=== PATIENT | female | born 1950 | race Caucasian/White ===

== ENCOUNTER 2017-07-02 12:21 | Emergency (ER) | payer OTHER ==
[2017-07-02] MEDS ORDERED: Sodium Chloride 0.9% 2.5 ML Syringe FLUSH PRN (12:42)
[2017-07-02] MEDS ORDERED: Sodium Chloride 0.9% 10 ML Syringe FLUSH PRN (12:42)
--- NOTE | 2017-07-02 12:48 | EDM.PDOC ---
ED HPI GENERAL MEDICAL PROBLEM - General Chief Complaint: Abdominal Pain Stated Complaint: ABDOMINAL PAIN Time Seen by Provider: 07/02/17 12:43 Source of Information: Reports: Patient History Limitations: Reports: No Limitations - History of Present Illness INITIAL COMMENTS - FREE TEXT/NARRATIVE: HISTORY AND PHYSICAL: []66-year-old female presenting with pain with to her chest with coughing Pain to her abdomen History of Present Illness: []Pain started after she had a thyroid scan on Tuesday and had to lay flat Review of Systems: As per history of present illness and below otherwise all systems reviewed and negative. Past medical history: As per history of present illness and as reviewed below otherwise noncontributory. Surgical history: As per history of present illness and as reviewed below otherwise noncontributory. Social history: No reported history of drug or alcohol abuse. Family history: As per history of present illness and as reviewed below otherwise noncontributory. Physical exam: Alert oriented female answering questions appropriately in full sentences she has to cough during the sentence shortness of breath HEENT: Atraumatic, normocehpalic, pupils reactive, negative for conjunctival pallor or scleral icterus, mucous membranes moist, throat clear, neck supple, nontender, trachea midline. Lungs: Crackles to auscultation, breath sounds equal bilaterally, chest non tender. Heart: S1S2, regular, negative for clicks, rubs, or JVD. Abdomen: Soft, nondistended, nontender. Negative for masses or hepatossplenmegaly. Negative for costovertebral tenderness. Pelvis: Stable nontender. Genitourinary: Deferred. Rectal: Deferred Extremities: Atraumatic, negative for cords or calf pain. Neurovascular unremarkable. Neuro: Awake, alert, oriented. Cranial nerves II through XII unremarkable. Cerebellum unremarkable. Motor and sensory unremarkable throughout. Exam nonfocal. Discussed with the patient that she has a urinary tract infection Patient also has complained of her sinuses draining not exquisitely tender on examination Diagnostics: []CBC CMP EKG troponin blood cultures Therapeutics: [DuoNeb] Impression: []UTI Smoker's cough Chronic Plan: []Home Place this patient on Bactrim DS 1 twice a day 7 days Reduce smoking Follow up with your primary care provider next week Return to the emergency department as needed Definitive disposition and diagnosis as appropriate pending reevaluation and review of above. Onset: Gradual Duration: Day(s): (4) Location: Reports: Chest, Abdomen, Back Quality: Reports: Stabbing Severity: Moderate upper abd and mid sternal Pain Score (Numeric/FACES): 8 - Related Data Allergies Allergy/AdvReac Type Severity Reaction Status Date / Time No Known Allergies Allergy Verified 07/02/17 12:33 Home Meds: Home Meds Fenofibrate Nanocrystallized [Tricor] 145 mg PO DAILY 10/03/14 [History] Lisinopril/Hydrochlorothiazide [Lisinopril-Hctz 10-12.5 mg Tab] 0.5 tab PO DAILY 10/03/14 [History] Nitroglycerin [Nitrostat] 0.4 mg SL Q5M PRN 10/03/14 [History] Ticagrelor [Brilinta] 90 mg PO BID 10/03/14 [History] atorvaSTATin [Lipitor] 20 mg PO BEDTIME 10/03/14 [History] metFORMIN HCl [Glucophage] 1,000 mg PO BIDMEALS 11/12/15 [History] Aspirin 81 mg PO DAILY 02/16/16 [History] Carvedilol 3.125 mg PO BID 02/16/16 [History] Fluticasone/Salmeterol [Advair Diskus 250-50] 1 puff INH BID #1 inhaler [Rx] Albuterol/Ipratropium [Combivent Respimat] 1 puff IH QID 07/02/17 [History] Sulfamethoxazole/Trimethoprim [Bactrim Ds Tablet] 1 each PO BID #14 tablet 07/02 [Rx] Past Medical History - Past Health History Medical/Surgical History: Denies Medical/Surgical History HEENT History: Reports: None Cardiovascular History: Reports: CAD, High Cholesterol, Hypertension, [place] Other Cardiovascular History: 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 Psychiatric History: Reports: None Endocrine/Metabolic History: Reports: Diabetes, Type II - Infectious Disease History Infectious Disease History: Reports: Chicken Pox, Measles, Mumps - Past Surgical History Cardiovascular Surgical History: Reports: Carotid Stents Social & Family History - Family History Family Medical History: Noncontributory - Tobacco Use Smoking Status *Q: Current Every Day Smoker Years of Tobacco use: 35 Packs/Tins Daily: 1 Used Tobacco, but Quit: No Month/Year Tobacco Last Used: 07/2014 Second Hand Smoke Exposure: Yes - Caffeine Use Caffeine Use: Reports: Coffee - Recreational Drug Use Recreational Drug Use: No - Living Situation & Occupation Living situation: Reports: ED ROS GENERAL - Review of Systems Review Of Systems: ROS reveals no pertinent complaints other than HPI. ED EXAM, GENERAL - Physical Exam Exam: See Below (see dictation) EKG INTERPRETATION EKG Date: 07/02/17 Rhythm: NSR Rate (Beats/Min): 97 Course - Vital Signs Last Recorded V/S: Last Vital Signs Temp 35.9 C 07/02/17 12:25 Pulse 103 H 07/02/17 12:53 Resp 14 07/02/17 12:53 BP 129/95 H 07/02/17 12:53 Pulse Ox 95 07/02/17 12:53 - Orders/Labs/Meds Orders: Active Orders 24 hr Category Date Time Status EKG Documentation Completion [RC] STAT Care 07/02/17 12:42 Active RT Aerosol Therapy [RC] ASDIRECTED Care 07/02/17 12:55 Active Chest 2V [CR] Stat Exams 07/02/17 12:43 Taken CULTURE BLOOD [BC] Stat Lab 07/02/17 12:56 Received CULTURE BLOOD [BC] Stat Lab 07/02/17 13:06 Received CULTURE URINE [RM] Stat Lab 07/02/17 12:58 Ordered UA W/MICROSCOPIC [URIN] Stat Lab 07/02/17 12:58 Ordered Sodium Chloride 0.9% [Saline Flush] Med 07/02/17 12:42 Active 10 ml FLUSH ASDIRECTED PRN Sodium Chloride 0.9% [Saline Flush] Med 07/02/17 12:42 Active 2.5 ml FLUSH ASDIRECTED PRN Blood Culture x2 Reflex Set [OM.PC] Stat Oth 07/02/17 12:42 Ordered Saline Lock Insert [OM.PC] Stat Oth 07/02/17 12:42 Ordered Medication Orders Sodium Chloride (Saline Flush) 10 ml FLUSH ASDIRECTED PRN PRN Reason: Keep Vein Open Sodium Chloride (Saline Flush) 2.5 ml FLUSH ASDIRECTED PRN PRN Reason: Keep Vein Open Labs: Laboratory Tests 07/02/17 07/02/17 07/02/17 Range/Units 12:56 12:56 12:58 WBC 9.01 (4.0-11.0) K/uL RBC 4.79 (4.30-5.90) M/uL Hgb 14.3 (12.0-16.0) g/dL Hct 43.5 (36.0-46.0) % MCV 90.8 (80.0-98.0) fL MCH 29.9 (27.0-32.0) pg MCHC 32.9 (31.0-37.0) g/dL RDW Std Deviation 45.7 (28.0-62.0) fl RDW Coeff of Brianna 14 (11.0-15.0) % Plt Count 278 (150-400) K/uL MPV 9.70 (7.40-12.00) fL Neut % (Auto) 71.9 (48.0-80.0) % Lymph % (Auto) 17.6 (16.0-40.0) % [place] % (Auto) 7.2 (0.0-15.0) % Eos % (Auto) 2.7 (0.0-7.0) % Baso % (Auto) 0.6 (0.0-1.5) % Neut # (Auto) 6.5 H (1.4-5.7) K/uL Lymph # (Auto) 1.6 (0.6-2.4) K/uL [place] # (Auto) 0.7 (0.0-0.8) K/uL Eos # (Auto) 0.2 (0.0-0.7) K/uL Baso # (Auto) 0.1 (0.0-0.1) K/uL Nucleated RBC % 0.0 /100WBC Nucleated RBCs # 0 K/uL Sodium 139 (136-145) mmol/L Potassium 3.9 (3.5-5.1) mmol/L Chloride 103 (98-107) mmol/L Carbon Dioxide 26.3 (21.0-32.0) mmol/L BUN 21 H (7.0-18.0) mg/dL Creatinine 1.7 H (0.6-1.0) mg/dL Est Cr Clr Drug Dosing 33.72 mL/min Estimated GFR (MDRD) 30.3 ml/min Glucose 128 H (74-106) mg/dL Calcium 10.5 H (8.5-10.1) mg/dL Total Bilirubin 0.4 (0.2-1.0) mg/dL AST 10 L (15-37) IU/L ALT 13 L (14-63) IU/L Alkaline Phosphatase 53 (46-116) U/L Troponin I < 0.050 (0.000-0.056) ng/mL Total Protein 7.5 (6.4-8.2) g/dL Albumin 3.5 (3.4-5.0) g/dL Globulin 4.0 H (2.0-3.5) g/dL Albumin/Globulin Ratio 0.9 L (1.3-2.8) Urine Color YELLOW Urine Appearance CLEAR Urine pH 6.5 (5.0-8.0) Ur Specific [place] 1.015 (1.001-1.035) Urine Protein NEGATIVE (NEGATIVE) mg/dL Urine Glucose (UA) NEGATIVE (NEGATIVE) mg/dL Urine Ketones NEGATIVE (NEGATIVE) mg/dL Urine Occult Blood NEGATIVE (NEGATIVE) Urine Nitrite NEGATIVE (NEGATIVE) Urine Bilirubin NEGATIVE (NEGATIVE) Urine Urobilinogen 0.2 (<2.0) EU/dL Ur Leukocyte Esterase SMALL (NEGATIVE) Urine RBC 0-1 (0-2/HPF) Urine WBC 0-2 (0-5/HPF) Ur Epithelial Cells FEW (NONE-FEW) Urine Bacteria 1+ H (NEGATIVE) Meds: Medications Generic Name Dose Route Start Last Admin Trade Name Freq PRN Reason Stop Dose Admin Sodium Chloride 10 ml 07/02/17 12:42 Saline Flush FLUSH ASDIRECTED PRN Keep Vein Open Sodium Chloride 2.5 ml 07/02/17 12:42 Saline Flush FLUSH ASDIRECTED PRN Keep Vein Open Discontinued Medications Generic Name Dose Route Start Last Admin Trade Name Freq PRN Reason Stop Dose Admin Albuterol/Ipratropium 3 ml 07/02/17 12:55 07/02/17 13:02 Duoneb 3.0-0.5 Mg/3 Ml NEB 07/02/17 12:56 3 ml ONETIME ONE Administration Departure - Departure Time of Disposition: 14:18 Disposition: Home, Self-Care 01 Condition: Good Clinical Impression: UTI (urinary tract infection) Qualifiers: Urinary tract infection type: acute cystitis Hematuria presence: without hematuria Qualified Code(s): N30.00 - Acute cystitis without hematuria - Discharge Information Prescriptions: Sulfamethoxazole/Trimethoprim [Bactrim Ds Tablet] 1 each PO BID #14 tablet Referrals: PCP,Unknown [Primary Care Provider] - Forms: ED Department Discharge Additional Instructions: The following information is given to patients seen in the emergency department who are being discharged to home. This information is to outline your options for follow-up care. We provide all patients seen in our emergency department with a follow-up referral. The need for follow-up, as well as the timing and circumstances, are variable depending upon the specifics of your emergency department visit. If you don't have a primary care physician on staff, we will provide you with a referral. We always advise you to contact your personal physician following an emergency department visit to inform them of the circumstance of the visit and for follow-up with them and/or the need for any referrals to a consulting specialist. The emergency department will also refer you to a specialist when appropriate. This referral assures that you have the opportunity for followup care with a specialist. All of these measure are taken in an effort to provide you with optimal care, which includes your followup. Under all circumstances we always encourage you to contact your private physician who remains a resource for coordinating your care. When calling for followup care, please make the office aware that this follow-up is from your recent emergency room visit. If for any reason you are refused follow-up, please contact the [facility] emergency department at and asked to speak to the emergency department charge nurse. You have a urinary tract infection Bactrim DS 1 twice a day 7 days Follow-up with your primary care provider next week Return to the emergency department as needed and discussed - My Orders Last 24 Hours: My Active Orders 07/02/17 12:42 EKG Documentation Completion [RC] STAT Sodium Chloride 0.9% [Saline Flush] 10 ml FLUSH ASDIRECTED PRN Sodium Chloride 0.9% [Saline Flush] 2.5 ml FLUSH ASDIRECTED PRN Blood Culture x2 Reflex Set [OM.PC] Stat Saline Lock Insert [OM.PC] Stat 07/02/17 12:43 Chest 2V [CR] Stat 07/02/17 12:55 RT Aerosol Therapy [RC] ASDIRECTED 07/02/17 12:56 CULTURE BLOOD [BC] Stat 07/02/17 12:58 CULTURE URINE [RM] Stat UA W/MICROSCOPIC [URIN] Stat 07/02/17 13:06 CULTURE BLOOD [BC] Stat - Assessment/Plan Last 24 Hours: My Active Orders 07/02/17 12:42 EKG Documentation Completion [RC] STAT Sodium Chloride 0.9% [Saline Flush] 10 ml FLUSH ASDIRECTED PRN Sodium Chloride 0.9% [Saline Flush] 2.5 ml FLUSH ASDIRECTED PRN Blood Culture x2 Reflex Set [OM.PC] Stat Saline Lock Insert [OM.PC] Stat 07/02/17 12:43 Chest 2V [CR] Stat 07/02/17 12:55 RT Aerosol Therapy [RC] ASDIRECTED 07/02/17 12:56 CULTURE BLOOD [BC] Stat 07/02/17 12:58 CULTURE URINE [RM] Stat UA W/MICROSCOPIC [URIN] Stat 07/02/17 13:06 CULTURE BLOOD [BC] Stat
[2017-07-02] MEDS ORDERED: Albuterol/Ipratropium 3.0-0.5 MG/3 ML Neb Soln NEB ONE (12:55)
[2017-07-02 13:45] LABS: CHLORIDE,CL 103 mmol/L (98-107); SODIUM,NA 139 mmol/L (136-145)
[2017-07-02 14:38] VITALS: BP 125/76
--- NOTE | 2017-07-04 13:53 | CR ---
EXAM DATE: 07/02/17 PATIENT'S AGE: 66 Patient: LOUIS LEARY Facility: [place], [place] Site . Site : 1950 Study: XRay Chest [id number]/28/2018 1:40:42 PM Ordering Physician: Doctor Elliott Final Report: INDICATION: Midsternal chest pain, feels worse when she coughs, patient states cardiac history TECHNIQUE: Chest radiograph 2 views COMPARISON: None FINDINGS: Mediastinum: The heart silhouette is normal in size and morphology. The mediastinum is normal in appearance. A small hiatal hernia noted. Mild coronary artery calcifications seen. Lungs: Both lungs are unremarkable in appearance. No sign of pleural effusion seen. No pneumothorax is identified. Bones and soft tissue: Unremarkable for age. IMPRESSION: 1. Mild coronary artery calcifications seen. Dictated by: Jerry Alfred MD @ 07/02/2017 14:05:21 (Electronic Signature) Report Signed by Proxy. JAZMIN
== END 2017-07-02 14:38 | disposition home or self-care (01) ==
LOC: MW.ED 12:21
DX: N30.00 Acute cystitis without hematuria (principal); J41.0 Simple chronic bronchitis; I25.10 Atherosclerotic heart disease of native coronary artery without angina pectoris; E78.00 Pure hypercholesterolemia, unspecified; I10 Essential (primary) hypertension; E11.9 Type 2 diabetes mellitus without complications; I25.2 Old myocardial infarction; F17.210 Nicotine dependence, cigarettes, uncomplicated; Z79.899 Other long term (current) drug therapy; Z79.84 Long term (current) use of oral hypoglycemic drugs; Z79.82 Long term (current) use of aspirin
CPT/HCPCS: 36415; 71046; 71046-26; 80053; 81001; 84484; 85025; 87040; 87086; 93005; 94640; 99283; 99284-25

== ENCOUNTER 2018-06-04 12:37 | Inpatient (IN) | payer OTHER ==
[2018-06-04] MEDS ORDERED: methylPREDNISolone Sodium Succinate 125 MG/2 ML SDV IVPUSH ONE (12:44)
[2018-06-04] MEDS ORDERED: Albuterol/Ipratropium 3.0-0.5 MG/3 ML Neb Soln NEB ONE (12:44)
[2018-06-04] MEDS ORDERED: Sodium Chloride 0.9% 1,000 ML IV SCH (12:45)
--- NOTE | 2018-06-04 12:46 | EDM.PDOC ---
ED HPI GENERAL MEDICAL PROBLEM - General Stated Complaint: SHORTNESS OF BREATH Time Seen by Provider: 06/04/18 12:45 Source of Information: Reports: Patient - History of Present Illness INITIAL COMMENTS - FREE TEXT/NARRATIVE: HISTORY AND PHYSICAL: History of present illness: [Patient with COPD and diabetes presents with shortness of breath She is hypoxic at rest on room air 85% no distress speaking in full sentences, post DuoNeb and Solu-Medrol she requires 4 L to maintain sats at 90% breathing is nonlabored she does have harsh cough denies fever nausea vomiting chills sweats denies chest pain headache dizziness or palpitation no bowel or urine symptoms ] Review of systems: As per history of present illness and below otherwise all systems reviewed and negative. Past medical history: As per history of present illness and as reviewed below otherwise noncontributory. Surgical history: As per history of present illness and as reviewed below otherwise noncontributory. Social history: No reported history of drug or alcohol abuse. Family history: As per history of present illness and as reviewed below otherwise noncontributory. Physical exam: HEENT: Atraumatic, normocephalic, pupils reactive, negative for conjunctival pallor or scleral icterus, mucous membranes moist, throat clear, neck supple, nontender, trachea midline. Lungs: Clear to auscultation, breath sounds equal bilaterally, chest nontender. Heart: S1S2, regular, negative for clicks, rubs, or JVD. Abdomen: Soft, nondistended, nontender. Negative for masses or hepatosplenomegaly. Negative for costovertebral tenderness. Pelvis: Stable nontender. Genitourinary: Deferred. Rectal: Deferred. Extremities: Atraumatic, negative for cords or calf pain. Neurovascular unremarkable. Neuro: Awake, alert, oriented. Cranial nerves II through XII unremarkable. Cerebellum unremarkable. Motor and sensory unremarkable throughout. Exam nonfocal. Diagnostics: [CBC CMP UA troponin lipase BN peptide EKG Chest 1 view ] Therapeutics: Normal saline DuoNeb Solu-Medrol 125 mg IV Rocephin 1 g IV Azithromycin 500 mg IV ] Impression: Hypoxia Infiltrate on chest x-ray [Short of breath chronic history Baseline ] Definitive disposition and diagnosis as appropriate pending reevaluation and review of above. - Related Data Allergies Allergy/AdvReac Type Severity Reaction Status Date / Time No Known Allergies Allergy Verified 07/02/17 12:33 Home Meds: Home Meds Fenofibrate Nanocrystallized [Tricor] 145 mg PO DAILY 10/03/14 [History] Lisinopril/Hydrochlorothiazide [Lisinopril-Hctz 10-12.5 mg Tab] 0.5 tab PO DAILY 10/03/14 [History] Nitroglycerin [Nitrostat] 0.4 mg SL Q5M PRN 10/03/14 [History] Ticagrelor [Brilinta] 90 mg PO BID 10/03/14 [History] atorvaSTATin [Lipitor] 20 mg PO BEDTIME 10/03/14 [History] metFORMIN HCl [Glucophage] 1,000 mg PO BIDMEALS 11/12/15 [History] Aspirin 81 mg PO DAILY 02/16/16 [History] Carvedilol 3.125 mg PO BID 02/16/16 [History] Fluticasone/Salmeterol [Advair Diskus 250-50] 1 puff INH BID #1 inhaler [Rx] Albuterol/Ipratropium [Combivent Respimat] 1 puff IH QID 07/02/17 [History] Sulfamethoxazole/Trimethoprim [Bactrim Ds Tablet] 1 each PO BID #14 tablet 07/02 [Rx] Past Medical History - Past Health History Medical/Surgical History: Denies Medical/Surgical History HEENT History: Reports: None Cardiovascular History: Reports: CAD, High Cholesterol, Hypertension, [place] Other 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 Psychiatric History: Reports: None Endocrine/Metabolic History: Reports: Diabetes, Type II - Infectious Disease History Infectious Disease History: Reports: Chicken Pox, Measles, Mumps - Past Surgical History Cardiovascular Surgical History: Reports: Carotid Stents Social & Family History - Family History Family Medical History: Noncontributory - Caffeine Use Caffeine Use: Reports: Coffee - Living Situation & Occupation Living situation: Reports: ED ROS GENERAL - Review of Systems Review Of Systems: See Below ED EXAM, GENERAL - Physical Exam Exam: See Below Course - Vital Signs Last Recorded V/S: Last Vital Signs Temp 97.8 F 06/04/18 12:53 Pulse 115 H 06/04/18 12:53 Resp 24 H 06/04/18 12:53 BP 150/93 H 06/04/18 12:53 Pulse Ox 91 L 06/04/18 13:26 - Orders/Labs/Meds Orders: Active Orders 24 hr Category Date Time Status EKG Documentation Completion [RC] STAT Care 06/04/18 12:44 Active RT Aerosol Therapy [RC] ASDIRECTED Care 06/04/18 12:44 Active Chest 1V Frontal [CR] Stat Exams 06/04/18 12:44 Taken UA RFX ANGELLA AND CULT IF INDIC [URIN] Stat Lab 06/04/18 12:44 Ordered Sodium Chloride 0.9% [Normal Saline] 1,000 ml Med 06/04/18 12:45 Active IV STAT Medication Orders Sodium Chloride (Normal Saline) 1,000 mls @ 125 mls/hr IV STAT SHEN Last Admin: 06/04/18 12:55 Dose: 125 mls/hr Labs: Laboratory Tests 06/04/18 06/04/18 06/04/18 Range/Units 12:54 12:54 12:54 WBC 13.56 H (4.0-11.0) K/uL RBC 4.77 (4.30-5.90) M/uL Hgb 14.3 (12.0-16.0) g/dL Hct 44.1 (36.0-46.0) % MCV 92.5 (80.0-98.0) fL MCH 30.0 (27.0-32.0) pg MCHC 32.4 (31.0-37.0) g/dL RDW Std Deviation 46.4 (28.0-62.0) fl RDW Coeff of Brianna 14 (11.0-15.0) % Plt Count 210 (150-400) K/uL MPV 9.40 (7.40-12.00) fL Neut % (Auto) 79.3 (48.0-80.0) % Lymph % (Auto) 11.9 L (16.0-40.0) % [place] % (Auto) 8.4 (0.0-15.0) % Eos % (Auto) 0.1 (0.0-7.0) % Baso % (Auto) 0.3 (0.0-1.5) % Neut # (Auto) 10.8 H (1.4-5.7) K/uL Lymph # (Auto) 1.6 (0.6-2.4) K/uL [place] # (Auto) 1.1 H (0.0-0.8) K/uL Eos # (Auto) 0.0 (0.0-0.7) K/uL Baso # (Auto) 0.0 (0.0-0.1) K/uL Nucleated RBC % 0.0 /100WBC Nucleated RBCs # 0 K/uL Sodium 137 (136-145) mmol/L Potassium 4.2 (3.5-5.1) mmol/L Chloride 100 (98-107) mmol/L Carbon Dioxide 27.2 (21.0-32.0) mmol/L BUN 28 H (7.0-18.0) mg/dL Creatinine 1.7 H (0.6-1.0) mg/dL Est Cr Clr Drug Dosing 33.28 mL/min Estimated GFR (MDRD) 30.2 ml/min Glucose 153 H (74-106) mg/dL Calcium 10.9 H (8.5-10.1) mg/dL Total Bilirubin 0.8 (0.2-1.0) mg/dL AST 8 L (15-37) IU/L ALT 16 (14-63) IU/L Alkaline Phosphatase 61 (46-116) U/L Troponin I < 0.050 (0.000-0.056) ng/mL B-Natriuretic Peptide 36 (<100) PG/ML Total Protein 8.1 (6.4-8.2) g/dL Albumin 3.4 (3.4-5.0) g/dL Globulin 4.7 H (2.6-4.0) g/dL Albumin/Globulin Ratio 0.7 L (0.9-1.6) Lipase 171 (73-393) U/L Meds: Medications Generic Name Dose Route Start Last Admin Trade Name Freq PRN Reason Stop Dose Admin Sodium Chloride 1,000 mls @ 125 mls/hr 06/04/18 12:45 06/04/18 12:55 Normal Saline IV 125 mls/hr STAT SHEN Administration Discontinued Medications Generic Name Dose Route Start Last Admin Trade Name Freq PRN Reason Stop Dose Admin Albuterol/Ipratropium 3 ml 06/04/18 12:44 06/04/18 13:06 Duoneb 3.0-0.5 Mg/3 Ml NEB 06/04/18 12:45 3 ml ONETIME ONE Administration Methylprednisolone Sodium Succinate 125 mg 06/04/18 12:44 06/04/18 12:55 Solu-Medrol IVPUSH 06/04/18 12:45 125 mg ONETIME ONE Administration Departure - Departure Time of Disposition: 13:54 Disposition: Admitted As Inpatient 68 Condition: Poor Clinical Impression: Hypoxia - Discharge Information Referrals: PCP,Unknown [Primary Care Provider] - - My Orders Last 24 Hours: My Active Orders 06/04/18 12:44 EKG Documentation Completion [RC] STAT RT Aerosol Therapy [RC] ASDIRECTED Chest 1V Frontal [CR] Stat UA RFX ANGELLA AND CULT IF INDIC [URIN] Stat 06/04/18 12:45 Sodium Chloride 0.9% [Normal Saline] 1,000 ml IV STAT - Assessment/Plan Last 24 Hours: My Active Orders 06/04/18 12:44 EKG Documentation Completion [RC] STAT RT Aerosol Therapy [RC] ASDIRECTED Chest 1V Frontal [CR] Stat UA RFX ANGELLA AND CULT IF INDIC [URIN] Stat 06/04/18 12:45 Sodium Chloride 0.9% [Normal Saline] 1,000 ml IV STAT
[2018-06-04 13:21] LABS: CHLORIDE,CL 100 mmol/L (98-107); SODIUM,NA 137 mmol/L (136-145)
--- NOTE | 2018-06-04 14:09 | CR ---
History : Shortness of breath Comparison : None. FINDINGS: Single portable AP view of the chest. The lungs are clear. No evidence for pneumonia. Heart size and pulmonary vascularity are within normal limits. Costophrenic angles sharp. Dictated by Felisha Castillo MD @ Jun 04 2018 2:06PM Signed by Dr. Felisha Castillo @ Jun 04 2018 2:06PM
[2018-06-04] MEDS ORDERED: Albuterol/Ipratropium 3.0-0.5 MG/3 ML Neb Soln NEB PRN (15:16)
[2018-06-04] MEDS ORDERED: Ondansetron 4 MG Tab.DIS PO PRN (15:16)
[2018-06-04] MEDS ORDERED: Acetaminophen 325 MG Tab PO PRN (15:16)
[2018-06-04] MEDS ORDERED: oxyCODONE 5 MG Tab PO PRN (15:16)
[2018-06-04] MEDS ORDERED: Temazepam 15 MG Cap PO PRN (15:16)
--- NOTE | 2018-06-04 15:23 | PCM.HP ---
H&P History of Present Illness - General Date of Service: 06/04/18 Admit Problem/Dx: Admission Diagnosis/Problem Admission Diagnosis/Problem acute on chronic respiratory failure, COPD exacerbation Source of Information: Patient History Limitations: Reports: No Limitations - History of Present Illness Initial Comments - Free Text/Narative: The patient is a 67-year-old lady who had presented to the emergency department primarily with a complaint of shortness of breath. The patient says that she has been sick with upper respiratory type infection for the past 2 days. Finally , shortness of breath got so bad that she needed to seek emergency care. The patient says that she has a cough that has been productive of sputum. She has denied any fever or chills but has felt cold. The patient still continues to smoke. In the emergency department the patient had a pulse oximetry reading of 85% on room air. She is on oxygen currently and does not use oxygen at home. She has had no specific aggravating or relieving factors although she gets more short of breath when ambulating. Onset of Symptoms: Reports: Gradual Duration of Symptoms: Reports: Day(s):, Getting Worse Location: Reports: Chest Quality: Reports: Dull Severity: Moderate Improves with: Reports: Rest Worsens with: Reports: Breathing, Movement Context: Reports: Sick Contact Associated Symptoms: Reports: cough w sputum, Shortness of Breath - Related Data Allergies/Adverse Reactions: Allergies Allergy/AdvReac Type Severity Reaction Status Date / Time No Known Allergies Allergy Verified 07/02/17 12:33 Home Medications: Home Meds Lisinopril/Hydrochlorothiazide [Lisinopril-Hctz 10-12.5 mg Tab] 1 tab PO DAILY 10/03/14 [History] Nitroglycerin [Nitrostat] 0.4 mg SL Q5M PRN 10/03/14 [History] metFORMIN HCl [Glucophage] 1,000 mg PO BIDMEALS 11/12/15 [History] Aspirin 81 mg PO DAILY 02/16/16 [History] Fluticasone/Salmeterol [Advair Diskus 250-50] 1 puff INH BID #1 inhaler [Rx] Albuterol/Ipratropium [Combivent Respimat] 1 puff IH QID 07/02/17 [History] Rosuvastatin Calcium [Crestor] 40 mg PO DAILY 06/04/18 [History] Past Medical History - Past Health History Medical/Surgical History: Denies Medical/Surgical History HEENT History: Reports: None Cardiovascular History: Reports: CAD, High Cholesterol, Hypertension, [place] Other Cardiovascular History: three stents on September Respiratory History: Reports: COPD Gastrointestinal History: Reports: None Genitourinary History: Reports: None [employer] History: Reports: Musculoskeletal History: Reports: Fracture Neurological History: Reports: None Psychiatric History: Reports: None Endocrine/Metabolic History: Reports: Diabetes, Type II Hematologic History: Reports: None Immunologic History: Reports: None - Infectious Disease History Infectious Disease History: Reports: Chicken Pox, Measles, Mumps - Past Surgical History Cardiovascular Surgical History: Reports: Carotid Stents Social & Family History - Family History Family Medical History: Noncontributory - Tobacco Use Smoking Status *Q: Current Every Day Smoker Years of Tobacco use: 40 Packs/Tins Daily: 1 - Caffeine Use Caffeine Use: Reports: Coffee - Recreational Drug Use Recreational Drug Use: No - Living Situation & Occupation Living situation: Reports: H&P Review of Systems - Review of Systems: Review Of Systems: See Below General: Reports: Malaise, Weakness, Decreased Appetite HEENT: Reports: No Symptoms Pulmonary: Reports: Shortness of Breath, Wheezing, Pleuritic Chest Pain, Cough, Sputum Cardiovascular: Reports: No Symptoms Gastrointestinal: Reports: No Symptoms Genitourinary: Reports: No Symptoms Musculoskeletal: Reports: No Symptoms Skin: Reports: No Symptoms Psychiatric: Reports: No Symptoms Neurological: Reports: No Symptoms Hematologic/Lymphatic: Reports: No Symptoms Immunologic: Reports: No Symptoms Exam - Exam Exam: See Below - Vital Signs Vital Signs: Last Vital Signs Temp 36.6 C 06/04/18 12:53 Pulse 115 H 06/04/18 12:53 Resp 24 H 06/04/18 12:53 BP 150/93 H 06/04/18 12:53 Pulse Ox 91 L 06/04/18 14:05 Weight: 99.79 kg - Exam Quality Assessment: Supplemental Oxygen General: Alert (Appears most older than stated age), Oriented, Cooperative, Mild Distress HEENT: Conjunctiva Clear, EACs Clear, EOMI, Hearing Intact, PERRLA. No: Mucosa Moist & [place] (Dry, poor oral hygiene, missing teeth) Neck: Supple, Trachea Midline, +2 Carotid Pulse wo Bruit Lungs: Decreased Breath Sounds, Rhonchi, Wheezing Cardiovascular: Regular Rate, Regular Rhythm GI/Abdominal Exam: Normal Bowel Sounds, Soft, Non-Tender, No Distention, Other ( Obese) (Female) Exam: Deferred Rectal (Female) Exam: Deferred Back Exam: Normal Inspection Extremities: Normal Inspection, No Pedal Edema Skin: Warm, Dry, Intact, Other (Hirsutism) Neurological: Cranial Nerves Intact Psychiatric: Alert, Normal Mood. No: Normal Affect (Flat affect) - Patient Data Lab Results Last 24 hrs: Laboratory Results - last 24 hr 06/04/18 06/04/18 06/04/18 Range/Units 12:54 12:54 12:54 WBC 13.56 H (4.0-11.0) K/uL RBC 4.77 (4.30-5.90) M/uL Hgb 14.3 (12.0-16.0) g/dL Hct 44.1 (36.0-46.0) % MCV 92.5 (80.0-98.0) fL MCH 30.0 (27.0-32.0) pg MCHC 32.4 (31.0-37.0) g/dL RDW Std Deviation 46.4 (28.0-62.0) fl RDW Coeff of Brianna 14 (11.0-15.0) % Plt Count 210 (150-400) K/uL MPV 9.40 (7.40-12.00) fL Neut % (Auto) 79.3 (48.0-80.0) % Lymph % (Auto) 11.9 L (16.0-40.0) % [place] % (Auto) 8.4 (0.0-15.0) % Eos % (Auto) 0.1 (0.0-7.0) % Baso % (Auto) 0.3 (0.0-1.5) % Neut # (Auto) 10.8 H (1.4-5.7) K/uL Lymph # (Auto) 1.6 (0.6-2.4) K/uL [place] # (Auto) 1.1 H (0.0-0.8) K/uL Eos # (Auto) 0.0 (0.0-0.7) K/uL Baso # (Auto) 0.0 (0.0-0.1) K/uL Nucleated RBC % 0.0 /100WBC Nucleated RBCs # 0 K/uL Sodium 137 (136-145) mmol/L Potassium 4.2 (3.5-5.1) mmol/L Chloride 100 (98-107) mmol/L Carbon Dioxide 27.2 (21.0-32.0) mmol/L BUN 28 H (7.0-18.0) mg/dL Creatinine 1.7 H (0.6-1.0) mg/dL Est Cr Clr Drug Dosing 33.28 mL/min Estimated GFR (MDRD) 30.2 ml/min Glucose 153 H (74-106) mg/dL Calcium 10.9 H (8.5-10.1) mg/dL Total Bilirubin 0.8 (0.2-1.0) mg/dL AST 8 L (15-37) IU/L ALT 16 (14-63) IU/L Alkaline Phosphatase 61 (46-116) U/L Troponin I < 0.050 (0.000-0.056) ng/mL B-Natriuretic Peptide 36 (<100) PG/ML Total Protein 8.1 (6.4-8.2) g/dL Albumin 3.4 (3.4-5.0) g/dL Globulin 4.7 H (2.6-4.0) g/dL Albumin/Globulin Ratio 0.7 L (0.9-1.6) Lipase 171 (73-393) U/L Result Diagrams: 06/04/18 12:54 06/04/18 12:54 - Problem List (1) Acute respiratory failure with hypoxia and hypercapnia SNOMED Code(s): 812056054 ICD Code: J96.01 - ACUTE RESPIRATORY FAILURE WITH HYPOXIA; J96.02 - ACUTE RESPIRATORY FAILURE WITH HYPERCAPNIA Status: Acute Priority: High Current Visit: Yes (2) COPD exacerbation SNOMED Code(s): 222166815, 366273019 ICD Code: J44.1 - CHRONIC OBSTRUCTIVE PULMONARY DISEASE W (ACUTE) EXACERBATION Status: Acute Priority: High Current Visit: Yes (3) Diabetes mellitus type II, non insulin dependent SNOMED Code(s): 69596239 ICD Code: E11.9 - TYPE 2 DIABETES MELLITUS WITHOUT COMPLICATIONS Status: Chronic Priority: High Current Visit: Yes (4) CAD (coronary artery disease) SNOMED Code(s): 09381946 ICD Code: I25.10 - ATHSCL HEART DISEASE OF [place] CORONARY ARTERY W/O ANG PCTRS Status: Chronic Priority: High Current Visit: Yes Qualifiers: Coronary Disease-Associated Artery/Lesion type: [place] artery [place] vs. transplanted heart: [place] heart Associated angina: without angina Qualified Code(s): I25.10 - Atherosclerotic heart disease of [place] coronary artery without angina pectoris (5) HTN (hypertension) SNOMED Code(s): 31611150 ICD Code: I10 - ESSENTIAL (PRIMARY) HYPERTENSION Status: Chronic Priority : High Current Visit: Yes Qualifiers: Hypertension type: essential hypertension Qualified Code(s): I10 - Essential (primary) hypertension (6) Chronic kidney disease, stage 3 (moderate) SNOMED Code(s): 758268856 ICD Code: N18.3 - CHRONIC KIDNEY DISEASE, STAGE 3 (MODERATE) Status: Chronic Priority: High Current Visit: Yes (7) Tobacco abuse SNOMED Code(s): 740704795 ICD Code: Z72.0 - TOBACCO USE Status: Chronic Priority: High Current Visit: Yes Problem List Initiated/Reviewed/Updated: Yes Orders Last 24hrs: Active Orders 24 hr Category Date Time Status Admission Status [Patient Status] [ADT] Stat ADT 06/04/18 13:55 Active Blood Glucose Check, Bedside [RC] WITHMEALSANDBED Care 06/04/18 15:16 Ordered Cardiac Monitoring [RC] CONTINUOUS Care 06/04/18 15:17 Ordered Diabetes Education [RC] Click to Edit Care 06/04/18 15:17 Ordered EKG Documentation Completion [RC] STAT Care 06/04/18 12:44 Active Oxygen Therapy [RC] PRN Care 06/04/18 15:16 Ordered RT Aerosol Therapy [RC] ASDIRECTED Care 06/04/18 12:44 Active RT Aerosol Therapy [RC] ASDIRECTED Care 06/04/18 15:19 Ordered Up With Assistance [RC] ASDIRECTED Care 06/04/18 15:16 Ordered VTE/DVT Education [RC] PER UNIT ROUTINE Care 06/04/18 15:16 Ordered Vital Signs [RC] Q4H Care 06/04/18 15:16 Ordered Consistent Carbohydrate Diet [DIET] Diet 06/04/18 Dinner Ordered CBC WITH AUTO DIFF [HEME] AM Lab 06/05/18 05:11 Ordered COMPREHENSIVE METABOLIC PN,CMP [CHEM] AM Lab 06/05/18 05:11 Ordered UA RFX ANGELLA AND CULT IF INDIC [URIN] Stat Lab 06/04/18 12:44 Ordered Acetaminophen [Tylenol] Med 06/04/18 15:16 Ordered 650 mg PO Q4H PRN Albuterol/Ipratropium [DuoNeb 3.0-0.5 MG/3 ML] Med 06/04/18 15:16 Ordered 3 ml NEB Q4HRRT PRN Azithromycin [Zithromax] 500 mg Med 06/04/18 15:30 Ordered Sodium Chloride 0.9% [Normal Saline] 250 ml IV Q24H Enoxaparin [Lovenox] Med 06/04/18 15:30 Ordered 30 mg SUBCUT Q24H Insulin Aspart [NovoLOG] Med 06/04/18 21:00 Ordered See Protocol SUBCUT ACBREAKFASTANDBED Lisinopril/Hydrochlorothiazide [Lisinopril-HCTZ 10-12.5 Med 06/05/18 09:00 Ordered MG] 1 tab PO DAILY Ondansetron [Zofran ODT] Med 06/04/18 15:16 Ordered 4 mg PO Q6H PRN Rosuvastatin Calcium [Crestor] Med 06/05/18 09:00 Ordered 40 mg PO DAILY Sodium Chloride 0.9% [Normal Saline] 1,000 ml Med 06/04/18 15:30 Ordered IV ASDIRECTED Sodium Chloride 0.9% [Normal Saline] 1,000 ml Med 06/04/18 12:45 Active IV STAT Temazepam [Restoril] Med 06/04/18 15:16 Ordered 15 mg PO BEDTIME PRN metFORMIN HCl [Glucophage] Med 06/04/18 17:00 Ordered 1,000 mg PO BIDMEALS methylPREDNISolone Sod Succ [Solu-MEDROL] Med 06/04/18 15:30 Ordered 120 mg IV Q8H oxyCODONE Med 06/04/18 15:16 Ordered 5 mg PO Q4H PRN Glucose Management Sub Q Reflex [OM.PC] Click To Edit Oth 06/04/18 15:16 Ordered Resuscitation Status Routine Resus Stat 06/04/18 15:16 Ordered Medication Orders Acetaminophen (Tylenol) 650 mg PO Q4H PRN PRN Reason: Pain (Mild 1-3)/fever Albuterol/Ipratropium (Duoneb 3.0-0.5 Mg/3 Ml) 3 ml NEB Q4HRRT PRN PRN Reason: Shortness Of Breath/wheezing Enoxaparin Sodium (Lovenox) 30 mg SUBCUT Q24H SHEN Sodium Chloride (Normal Saline) 1,000 mls @ 125 mls/hr IV STAT SHEN Last Admin: 06/04/18 12:55 Dose: 125 mls/hr Azithromycin 500 mg/ Sodium (Chloride) 250 mls @ 250 mls/hr IV Q24H SHEN Sodium Chloride (Normal Saline) 1,000 mls @ 75 mls/hr IV ASDIRECTED SHEN Insulin Aspart (Novolog) 0 unit SUBCUT ACBREAKFASTANDBED SHEN; Protocol Methylprednisolone Sodium Succinate (Solu-Medrol) 120 mg IV Q8H SHEN Ondansetron HCl (Zofran Odt) 4 mg PO Q6H PRN PRN Reason: nausea, able to take PO Oxycodone HCl (Oxycodone) 5 mg PO Q4H PRN PRN Reason: Pain (moderate 4-6) Temazepam (Restoril) 15 mg PO BEDTIME PRN PRN Reason: Sleep Assessment/Plan Comment:: The patient is a 67-year-old lady who has been admitted secondary to acute on chronic hypoxic respiratory failure. This is likely secondary to the patient's underlying COPD. Radiology over read of chest x-ray did not show any signs of pneumonia. The patient will be kept on oxygen therapy to keep her saturations around 92%. The patient will also be started on azithromycin 500 mg IV daily and Solu-Medrol 120 mg every 8 hours. She also has been recommended to have breathing treatments with duo nebs every 4 hours as needed per respiratory therapy. She'll be kept on diabetic diet as tolerated for now. The patient will have Accu-Cheks before meals and at bedtime and her blood sugars will be controlled with high-dose sliding scale insulin. This will be done at high dose because of the patient having worsening hyperglycemia secondary to steroid use. The patient also has what appears to be chronic kidney disease stage III and laboratory testings will be reordered for the morning to help track her BUN/ creatinine. The patient also has been strongly counseled with regards to smoking cessation and she has refused a nicotine patch. The patient should be appropriate for discharge in 1-2 days. She has been encouraged to ambulate. The patient will be anticoagulated with low-dose Lovenox secondary to her chronic kidney disease.
[2018-06-04] MEDS ORDERED: Enoxaparin 30 MG/0.3 ML Syringe SUBCUT SCH (15:30)
[2018-06-04] MEDS ORDERED: Azithromycin 500 MG in Sodium Chloride 0.9% 250 ML IV SCH ×2 (15:30→16:17)
[2018-06-04] MEDS: Sodium Chloride 0.9% 1,000 ML IV SCH (16:13)
[2018-06-04] MEDS: methylPREDNISolone Sodium Succinate 125 MG/2 ML SDV IV SCH ×2 (16:14→23:29)
[2018-06-04] MEDS: Heparin Sodium 5,000 Units/ML Vial SUBCUT SCH ×2 (16:35→23:29)
[2018-06-04] MEDS ORDERED: metFORMIN 500 MG Tab PO SCH (17:00)
[2018-06-04] MEDS ORDERED: Insulin Aspart 100 Units/ML 3 ML Pen SUBCUT SCH ×2 (17:00→21:00)
[2018-06-04] MEDS: Insulin Aspart 100 Units/ML 3 ML Pen SUBCUT SCH (21:19)
[2018-06-05] MEDS: Sodium Chloride 0.9% 1,000 ML IV SCH ×3 (02:26→23:54)
[2018-06-05] MEDS: methylPREDNISolone Sodium Succinate 125 MG/2 ML SDV IV SCH ×3 (06:31→21:30)
[2018-06-05] MEDS: Insulin Aspart 100 Units/ML 3 ML Pen SUBCUT SCH ×4 (08:15→21:29)
[2018-06-05] MEDS: Heparin Sodium 5,000 Units/ML Vial SUBCUT SCH ×3 (08:20→23:58)
[2018-06-05] MEDS: Rosuvastatin 10 MG Tab PO SCH (08:27)
[2018-06-05] MEDS ORDERED: Sodium Chloride 0.9% 1,000 ML IV ONE (08:30)
--- NOTE | 2018-06-05 08:33 | PCM.PN ---
<Mary Birmingham M - Last Filed: 06/05/18 09:03> - General Info Date of Service: 06/05/18 Admission Dx/Problem (Free Text): Admission Diagnosis/Problem Admission Diagnosis/Problem Acute on chronic respiratory failure, COPD exacerbation Subjective Update: Reports breathing is improved today, continued intermittent wheezing. Dry cough. No chest pain. No dyspnea on exertion. Reports some urgency, frequency with urination. No flank pain or lower abdominal pain. Functional Status: Reports: Pain Controlled, Tolerating Diet, Ambulating, Urinating - Review of Systems General: Reports: No Symptoms. Denies: Fever, Weakness, Fatigue HEENT: Reports: No Symptoms. Denies: Headaches, Sore Throat, Visual Changes Pulmonary: Reports: Cough. Denies: Shortness of Breath, Sputum, Wheezing Cardiovascular: Reports: No Symptoms. Denies: Chest Pain, Dyspnea on Exertion, Lightheadedness Gastrointestinal: Reports: No Symptoms. Denies: Abdominal Pain, Nausea, Vomiting Genitourinary: Reports: No Symptoms. Denies: Dysuria, Frequency, Burning Musculoskeletal: Reports: No Symptoms Skin: Reports: No Symptoms Neurological: Reports: No Symptoms Psychiatric: Reports: No Symptoms - Patient Data Vitals - Most Recent: Last Vital Signs Temp 97.1 F 06/05/18 08:00 Pulse 80 06/05/18 08:00 Resp 20 06/05/18 08:00 BP 100/51 L 06/05/18 08:00 Pulse Ox 92 L 06/05/18 08:00 Weight - Most Recent: 99.79 kg I&O - Last 24 Hours: Intake & Output 06/04/18 06/05/18 06/05/18 22:59 06:59 14:59 Intake Total 392 1455 Output Total 0 300 Balance 392 1155 Lab Results Last 24 Hours: Laboratory Results - last 24 hr 06/04/18 06/04/18 06/04/18 Range/Units 12:54 12:54 12:54 WBC 13.56 H (4.0-11.0) K/uL RBC 4.77 (4.30-5.90) M/uL Hgb 14.3 (12.0-16.0) g/dL Hct 44.1 (36.0-46.0) % MCV 92.5 (80.0-98.0) fL MCH 30.0 (27.0-32.0) pg MCHC 32.4 (31.0-37.0) g/dL RDW Std Deviation 46.4 (28.0-62.0) fl RDW Coeff of Brianna 14 (11.0-15.0) % Plt Count 210 (150-400) K/uL MPV 9.40 (7.40-12.00) fL Neut % (Auto) 79.3 (48.0-80.0) % Lymph % (Auto) 11.9 L (16.0-40.0) % [place] % (Auto) 8.4 (0.0-15.0) % Eos % (Auto) 0.1 (0.0-7.0) % Baso % (Auto) 0.3 (0.0-1.5) % Neut # (Auto) 10.8 H (1.4-5.7) K/uL Lymph # (Auto) 1.6 (0.6-2.4) K/uL [place] # (Auto) 1.1 H (0.0-0.8) K/uL Eos # (Auto) 0.0 (0.0-0.7) K/uL Baso # (Auto) 0.0 (0.0-0.1) K/uL Nucleated RBC % 0.0 /100WBC Nucleated RBCs # 0 K/uL Sodium 137 (136-145) mmol/L Potassium 4.2 (3.5-5.1) mmol/L Chloride 100 (98-107) mmol/L Carbon Dioxide 27.2 (21.0-32.0) mmol/L BUN 28 H (7.0-18.0) mg/dL Creatinine 1.7 H (0.6-1.0) mg/dL Est Cr Clr Drug Dosing 33.28 mL/min Estimated GFR (MDRD) 30.2 ml/min Glucose 153 H (74-106) mg/dL POC Glucose (60-110) mg/dL Calcium 10.9 H (8.5-10.1) mg/dL Total Bilirubin 0.8 (0.2-1.0) mg/dL AST 8 L (15-37) IU/L ALT 16 (14-63) IU/L Alkaline Phosphatase 61 (46-116) U/L Troponin I < 0.050 (0.000-0.056) ng/mL B-Natriuretic Peptide 36 (<100) PG/ML Total Protein 8.1 (6.4-8.2) g/dL Albumin 3.4 (3.4-5.0) g/dL Globulin 4.7 H (2.6-4.0) g/dL Albumin/Globulin Ratio 0.7 L (0.9-1.6) Lipase 171 (73-393) U/L Urine Color Urine Appearance Urine pH (5.0-8.0) Ur Specific [place] (1.001-1.035) Urine Protein (NEGATIVE) mg/dL Urine Glucose (UA) (NEGATIVE) mg/dL Urine Ketones (NEGATIVE) mg/dL Urine Occult Blood (NEGATIVE) Urine Nitrite (NEGATIVE) Urine Bilirubin (NEGATIVE) Urine Ictotest Urine Urobilinogen (<2.0) EU/dL Ur Leukocyte Esterase (NEGATIVE) Urine RBC (0-2/HPF) Urine WBC (0-5/HPF) Ur Epithelial Cells (NONE-FEW) Amorphous Sediment (NEGATIVE) Urine Bacteria (NEGATIVE) Urine Mucus (NONE-MOD) 06/04/18 06/04/18 06/04/18 Range/Units 15:34 17:25 19:30 WBC (4.0-11.0) K/uL RBC (4.30-5.90) M/uL Hgb (12.0-16.0) g/dL Hct (36.0-46.0) % MCV (80.0-98.0) fL MCH (27.0-32.0) pg MCHC (31.0-37.0) g/dL RDW Std Deviation (28.0-62.0) fl RDW Coeff of [place] (11.0-15.0) % Plt Count (150-400) K/uL MPV (7.40-12.00) fL Neut % (Auto) (48.0-80.0) % Lymph % (Auto) (16.0-40.0) % [place] % (Auto) (0.0-15.0) % Eos % (Auto) (0.0-7.0) % Baso % (Auto) (0.0-1.5) % Neut # (Auto) (1.4-5.7) K/uL Lymph # (Auto) (0.6-2.4) K/uL [place] # (Auto) (0.0-0.8) K/uL Eos # (Auto) (0.0-0.7) K/uL Baso # (Auto) (0.0-0.1) K/uL Nucleated RBC % /100WBC Nucleated RBCs # K/uL Sodium (136-145) mmol/L Potassium (3.5-5.1) mmol/L Chloride (98-107) mmol/L Carbon Dioxide (21.0-32.0) mmol/L BUN (7.0-18.0) mg/dL Creatinine (0.6-1.0) mg/dL Est Cr Clr Drug Dosing mL/min Estimated GFR (MDRD) ml/min Glucose (74-106) mg/dL POC Glucose 164 H 328 H 253 H (60-110) mg/dL Calcium (8.5-10.1) mg/dL Total Bilirubin (0.2-1.0) mg/dL AST (15-37) IU/L ALT (14-63) IU/L Alkaline Phosphatase (46-116) U/L Troponin I (0.000-0.056) ng/mL B-Natriuretic Peptide (<100) PG/ML Total Protein (6.4-8.2) g/dL Albumin (3.4-5.0) g/dL Globulin (2.6-4.0) g/dL Albumin/Globulin Ratio (0.9-1.6) Lipase (73-393) U/L Urine Color Urine Appearance Urine pH (5.0-8.0) Ur Specific [place] (1.001-1.035) Urine Protein (NEGATIVE) mg/dL Urine Glucose (UA) (NEGATIVE) mg/dL Urine Ketones (NEGATIVE) mg/dL Urine Occult Blood (NEGATIVE) Urine Nitrite (NEGATIVE) Urine Bilirubin (NEGATIVE) Urine Ictotest Urine Urobilinogen (<2.0) EU/dL Ur Leukocyte Esterase (NEGATIVE) Urine RBC (0-2/HPF) Urine WBC (0-5/HPF) Ur Epithelial Cells (NONE-FEW) Amorphous Sediment (NEGATIVE) Urine Bacteria (NEGATIVE) Urine Mucus (NONE-MOD) 06/04/18 06/05/18 06/05/18 Range/Units 21:18 05:30 06:01 WBC 11.35 H (4.0-11.0) K/uL RBC 4.46 (4.30-5.90) M/uL Hgb 13.2 (12.0-16.0) g/dL Hct 42.1 (36.0-46.0) % MCV 94.4 (80.0-98.0) fL MCH 29.6 (27.0-32.0) pg MCHC 31.4 (31.0-37.0) g/dL RDW Std Deviation 47.8 (28.0-62.0) fl RDW Coeff of Brianna 14 (11.0-15.0) % Plt Count 218 (150-400) K/uL MPV 10.00 (7.40-12.00) fL Neut % (Auto) 91.6 H (48.0-80.0) % Lymph % (Auto) 7.3 L (16.0-40.0) % [place] % (Auto) 1.1 (0.0-15.0) % Eos % (Auto) 0.0 (0.0-7.0) % Baso % (Auto) 0.0 (0.0-1.5) % Neut # (Auto) 10.4 H (1.4-5.7) K/uL Lymph # (Auto) 0.8 (0.6-2.4) K/uL [place] # (Auto) 0.1 (0.0-0.8) K/uL Eos # (Auto) 0.0 (0.0-0.7) K/uL Baso # (Auto) 0.0 (0.0-0.1) K/uL Nucleated RBC % 0.0 /100WBC Nucleated RBCs # 0 K/uL Sodium (136-145) mmol/L Potassium (3.5-5.1) mmol/L Chloride (98-107) mmol/L Carbon Dioxide (21.0-32.0) mmol/L BUN (7.0-18.0) mg/dL Creatinine (0.6-1.0) mg/dL Est Cr Clr Drug Dosing mL/min Estimated GFR (MDRD) ml/min Glucose (74-106) mg/dL POC Glucose 265 H (60-110) mg/dL Calcium (8.5-10.1) mg/dL Total Bilirubin (0.2-1.0) mg/dL AST (15-37) IU/L ALT (14-63) IU/L Alkaline Phosphatase (46-116) U/L Troponin I (0.000-0.056) ng/mL B-Natriuretic Peptide (<100) PG/ML Total Protein (6.4-8.2) g/dL Albumin (3.4-5.0) g/dL Globulin (2.6-4.0) g/dL Albumin/Globulin Ratio (0.9-1.6) Lipase (73-393) U/L Urine Color YELLOW Urine Appearance CLEAR Urine pH 5.0 (5.0-8.0) Ur Specific [place] >= 1.030 (1.001-1.035) Urine Protein NEGATIVE (NEGATIVE) mg/dL Urine Glucose (UA) NEGATIVE (NEGATIVE) mg/dL Urine Ketones TRACE H (NEGATIVE) mg/dL Urine Occult Blood NEGATIVE (NEGATIVE) Urine Nitrite NEGATIVE (NEGATIVE) Urine Bilirubin SMALL H (NEGATIVE) Urine Ictotest NEGATIVE Urine Urobilinogen 0.2 (<2.0) EU/dL Ur Leukocyte Esterase TRACE H (NEGATIVE) Urine RBC NONE SEEN (0-2/HPF) Urine WBC 0-2 (0-5/HPF) Ur Epithelial Cells MANY (NONE-FEW) Amorphous Sediment LIGHT (NEGATIVE) Urine Bacteria 2+ H (NEGATIVE) Urine Mucus MODERATE (NONE-MOD) 06/05/18 06/05/18 Range/Units 06:01 06:30 WBC (4.0-11.0) K/uL RBC (4.30-5.90) M/uL Hgb (12.0-16.0) g/dL Hct (36.0-46.0) % MCV (80.0-98.0) fL MCH (27.0-32.0) pg MCHC (31.0-37.0) g/dL RDW Std Deviation (28.0-62.0) fl RDW Coeff of [place]anna (11.0-15.0) % Plt Count (150-400) K/uL MPV (7.40-12.00) fL Neut % (Auto) (48.0-80.0) % Lymph % (Auto) (16.0-40.0) % [place] % (Auto) (0.0-15.0) % Eos % (Auto) (0.0-7.0) % Baso % (Auto) (0.0-1.5) % Neut # (Auto) (1.4-5.7) K/uL Lymph # (Auto) (0.6-2.4) K/uL [place] # (Auto) (0.0-0.8) K/uL Eos # (Auto) (0.0-0.7) K/uL Baso # (Auto) (0.0-0.1) K/uL Nucleated RBC % /100WBC Nucleated RBCs # K/uL Sodium 138 (136-145) mmol/L Potassium 4.8 (3.5-5.1) mmol/L Chloride 103 (98-107) mmol/L Carbon Dioxide 26.4 (21.0-32.0) mmol/L BUN 51 H (7.0-18.0) mg/dL Creatinine 2.4 H (0.6-1.0) mg/dL Est Cr Clr Drug Dosing 23.57 mL/min Estimated GFR (MDRD) 20.3 ml/min Glucose 239 H (74-106) mg/dL POC Glucose 233 H (60-110) mg/dL Calcium 10.5 H (8.5-10.1) mg/dL Total Bilirubin 0.3 (0.2-1.0) mg/dL AST 10 L (15-37) IU/L ALT 16 (14-63) IU/L Alkaline Phosphatase 55 (46-116) U/L Troponin I (0.000-0.056) ng/mL B-Natriuretic Peptide (<100) PG/ML Total Protein 7.3 (6.4-8.2) g/dL Albumin 2.9 L (3.4-5.0) g/dL Globulin 4.4 H (2.6-4.0) g/dL Albumin/Globulin Ratio 0.7 L (0.9-1.6) Lipase (73-393) U/L Urine Color Urine Appearance Urine pH (5.0-8.0) Ur Specific [place] (1.001-1.035) Urine Protein (NEGATIVE) mg/dL Urine Glucose (UA) (NEGATIVE) mg/dL Urine Ketones (NEGATIVE) mg/dL Urine Occult Blood (NEGATIVE) Urine Nitrite (NEGATIVE) Urine Bilirubin (NEGATIVE) Urine Ictotest Urine Urobilinogen (<2.0) EU/dL Ur Leukocyte Esterase (NEGATIVE) Urine RBC (0-2/HPF) Urine WBC (0-5/HPF) Ur Epithelial Cells (NONE-FEW) Amorphous Sediment (NEGATIVE) Urine Bacteria (NEGATIVE) Urine Mucus (NONE-MOD) Med Orders - Current: Current Medications Acetaminophen (Tylenol) 650 mg PO Q4H PRN PRN Reason: Pain (Mild 1-3)/fever Albuterol/Ipratropium (Duoneb 3.0-0.5 Mg/3 Ml) 3 ml NEB Q4HRRT PRN PRN Reason: Shortness Of Breath/wheezing Heparin Sodium (Porcine) (Heparin Sodium) 5,000 units SUBCUT Q8H [facility] Last Admin: 06/05/18 08:20 Dose: 5,000 units Azithromycin 500 mg/ Sodium (Chloride) 250 mls @ 250 mls/hr IV Q24H [facility] Last Admin: 06/04/18 16:40 Dose: 250 mls/hr Sodium Chloride (Normal Saline) 1,000 mls @ 500 mls/hr IV .Bolus ONE Stop: 06/05/18 10:29 Sodium Chloride (Normal Saline) 1,000 mls @ 125 mls/hr IV ASDIRECTED [facility] Insulin Aspart (Novolog) 0 unit SUBCUT QIDACANDBED [facility]; Protocol Last Admin: 06/05/18 08:15 Dose: 6 units Methylprednisolone Sodium Succinate (Solu-Medrol) 125 mg IV Q8H [facility] Ondansetron HCl (Zofran Odt) 4 mg PO Q6H PRN PRN Reason: nausea, able to take PO Oxycodone HCl (Oxycodone) 5 mg PO Q4H PRN PRN Reason: Pain (moderate 4-6) Brilinta (Ticagrelor () 90 Mg) 1 each PO BID [facility] Rosuvastatin Calcium (Crestor) 40 mg PO DAILY [facility] Last Admin: 06/05/18 08:27 Dose: 40 mg Fluticasone/Salmeterol (Advair Diskus 250-50) 1 puff INH BID [facility] Temazepam (Restoril) 15 mg PO BEDTIME PRN PRN Reason: Sleep Discontinued Medications Albuterol/Ipratropium (Duoneb 3.0-0.5 Mg/3 Ml) 3 ml NEB ONETIME ONE Stop: 06/04/18 12:45 Last Admin: 06/04/18 13:06 Dose: 3 ml Enoxaparin Sodium (Lovenox) 30 mg SUBCUT Q24H [facility] Last Admin: 06/04/18 17:14 Dose: Not Given Lisinopril/HCTZ (Lisinopril-Hctz 10-12.5 Mg) 1 tab PO DAILY [facility] Sodium Chloride (Normal Saline) 1,000 mls @ 125 mls/hr IV STAT [facility] Last Admin: 06/04/18 12:55 Dose: 125 mls/hr Azithromycin 500 mg/ Sodium (Chloride) 250 mls @ 250 mls/hr IV Q24H [facility] Last Admin: 06/04/18 16:40 Dose: Not Given Sodium Chloride (Normal Saline) 1,000 mls @ 75 mls/hr IV ASDIRECTED [facility] Last Admin: 06/05/18 02:26 Dose: 75 mls/hr Insulin Aspart (Novolog) 0 unit SUBCUT ACBREAKFASTANDBED [facility]; Protocol Insulin Aspart (Novolog) 0 unit SUBCUT TIDAC [facility]; Protocol Last Admin: 06/04/18 16:22 Dose: 3 units Metformin HCl (Glucophage) 1,000 mg PO BIDMEALS [facility] Last Admin: 06/04/18 16:14 Dose: 1,000 mg Methylprednisolone Sodium Succinate (Solu-Medrol) 125 mg IVPUSH ONETIME ONE Stop: 06/04/18 12:45 Last Admin: 06/04/18 12:55 Dose: 125 mg Methylprednisolone Sodium Succinate (Solu-Medrol) 120 mg IV Q8H [facility] Last Admin: 06/05/18 06:31 Dose: 120 mg - Exam General: Alert, Oriented, Cooperative, No Acute Distress Lungs: Decreased Breath Sounds (throughout), Wheezing (all lung de dios.) Cardiovascular: Regular Rate, Regular Rhythm, No Murmurs GI/Abdominal Exam: Normal Bowel Sounds, Soft, Non-Tender, No Organomegaly Back Exam: Normal Inspection, Full Range of Motion. No: CVA Tenderness (L), CVA Tenderness (R) Extremities: Normal Inspection, Normal Range of Motion, Non-Tender, No Pedal Edema Skin: Warm, Dry Neurological: No New Focal Deficit Psy/Mental Status: Alert, Normal Affect, Normal Mood - Problem List & Annotations (1) Acute respiratory failure with hypoxia and hypercapnia SNOMED Code(s): 364676529 Code(s): J96.01 - ACUTE RESPIRATORY FAILURE WITH HYPOXIA; J96.02 - ACUTE RESPIRATORY FAILURE WITH HYPERCAPNIA Status: Acute Priority: High Current Visit: Yes (2) COPD exacerbation SNOMED Code(s): 960097849, 814961399 Code(s): J44.1 - CHRONIC OBSTRUCTIVE PULMONARY DISEASE W (ACUTE) EXACERBATION Status: Acute Priority: High Current Visit: Yes (3) UTI (urinary tract infection) SNOMED Code(s): 81091394 Code(s): N39.0 - URINARY TRACT INFECTION, SITE NOT SPECIFIED Status: Acute Current Visit: No Qualifiers: Urinary tract infection type: acute cystitis Hematuria presence: without hematuria Qualified Code(s): N30.00 - Acute cystitis without hematuria (4) ALIDA (acute kidney injury) SNOMED Code(s): 87024637 Code(s): N17.9 - ACUTE KIDNEY FAILURE, UNSPECIFIED Status: Acute Current Visit: Yes (5) CAD (coronary artery disease) SNOMED Code(s): 52936005 Code(s): I25.10 - ATHSCL HEART DISEASE OF [place] CORONARY ARTERY W/O ANG PCTRS Status: Chronic Priority: High Current Visit: Yes Qualifiers: Coronary Disease-Associated Artery/Lesion type: [place] artery [place] vs. transplanted heart: [place] heart Associated angina: without angina Qualified Code(s): I25.10 - Atherosclerotic heart disease of [place] coronary artery without angina pectoris (6) Chronic kidney disease, stage 3 (moderate) SNOMED Code(s): 136165437 Code(s): N18.3 - CHRONIC KIDNEY DISEASE, STAGE 3 (MODERATE) Status: Chronic Priority: High Current Visit: Yes (7) Diabetes mellitus type II, non insulin dependent SNOMED Code(s): 33952840 Code(s): E11.9 - TYPE 2 DIABETES MELLITUS WITHOUT COMPLICATIONS Status: Chronic Priority: High Current Visit: Yes (8) HTN (hypertension) SNOMED Code(s): 67339707 Code(s): I10 - ESSENTIAL (PRIMARY) HYPERTENSION Status: Chronic Priority : High Current Visit: Yes Qualifiers: Hypertension type: essential hypertension Qualified Code(s): I10 - Essential (primary) hypertension (9) Tobacco abuse SNOMED Code(s): 090096551 Code(s): Z72.0 - TOBACCO USE Status: Chronic Priority: High Current Visit: Yes (10) Hx of myocardial infarction SNOMED Code(s): 393888234 Code(s): I25.2 - OLD MYOCARDIAL INFARCTION Status: Chronic Current Visit : No (11) Hypercalcemia SNOMED Code(s): 57678193 Code(s): E83.52 - HYPERCALCEMIA Status: Chronic Current Visit: No - Problem List Review Problem List Initiated/Reviewed/Updated: Yes - My Orders Last 24 Hours: My Active Orders 06/05/18 08:30 Sodium Chloride 0.9% [Normal Saline] 1,000 ml IV .Bolus 06/05/18 08:31 Sodium Chloride 0.9% [Normal Saline] 1,000 ml IV ASDIRECTED 06/05/18 08:32 Retroperitoneal Comp [US] Urgent 06/05/18 09:00 Fluticasone/Salmeterol [Advair Diskus 250-50] 1 puff INH BID Patient's Own Medication [Ptom] 1 each PO BID 06/05/18 14:30 methylPREDNISolone Sod Succ [Solu-MEDROL] 125 mg IV Q8H - Plan Plan:: This 67 year old female admitted with acute on chronic hypoxic respiratory failure and COPD exacerbation. 1. Acute on chronic hypoxic respiratory failure: Improving, continues to be on 3 L NC. Continue Duonebs. 2. COPD exacerbation: Improving, reports improved dyspnea. Continue Solu-mderol 125 mg Q8hr IV for now due to decreased LS and continued wheezing on exam. Encourage ambulation and IS use. Declines help with smoke cessation. Continue Azithromycin. 3. ALIDA on CKD: Has stage III renal disease. Hold nephrotoxic medications, including Metformin and Lisinopril/HCTZ. Noted to have hypotension this morning , 100/50s. Denies dizziness, may be dehydrated. Will administer 1 L Bolus and increase IVFs to 125 today and monitor renal function in am. Renal US ordered. Upon review of outpatient PCP visit on May 08, BUN 19 and Cr 1.4 4. UTI: Reports urgency and frequency, +2 bacteria in urine, LE +. Many epithelial cells, may be dirty sample. UC pending. 5. DM Type 2: Elevated BS, likely secondary to steroid administration. Continue SSI with Novolog. Last A1c 7.0. Hold Metformin due to ALIDA. DM educator consulted. 6. Hypercalcemia: Persistent. Again, upon review of PCP notes, she had NM study and noted to have parathyroid adenoma and hyperparathyroidism. Notes reports she has not seen specialist yet. Will monitor, but Ca is stable. 7. CAD: Hx NM with PCI to LAD. Continue statin and Brillinta 90 mg BID. VTE prophylaxis: Heparin Dispo: 1-2 days pending improvement. PCP, Lashanda Valdez NP and Dr Jacobs. <Martin Mcbride - Last Filed: 06/05/18 12:21> - General Info Admission Dx/Problem (Free Text): I have examined the patient independently of Mary Birmingham CNP. I have discussed the case with her. I have reviewed and agree with the plan of care as outlined by her. Please see orders. - Patient Data Vitals - Most Recent: Last Vital Signs Temp 36.0 C 06/05/18 11:45 Pulse 83 06/05/18 11:45 Resp 15 06/05/18 11:45 BP 105/56 L 06/05/18 11:45 Pulse Ox 91 L 06/05/18 11:45 I&O - Last 24 Hours: Intake & Output 06/04/18 06/05/18 06/05/18 22:59 06:59 14:59 Intake Total 392 1455 1050 Output Total 0 300 Balance 392 1155 1050 Lab Results Last 24 Hours: Laboratory Results - last 24 hr 06/04/18 06/04/18 06/04/18 Range/Units 12:54 12:54 12:54 WBC 13.56 H (4.0-11.0) K/uL RBC 4.77 (4.30-5.90) M/uL Hgb 14.3 (12.0-16.0) g/dL Hct 44.1 (36.0-46.0) % MCV 92.5 (80.0-98.0) fL MCH 30.0 (27.0-32.0) pg MCHC 32.4 (31.0-37.0) g/dL RDW Std Deviation 46.4 (28.0-62.0) fl RDW Coeff of [place] 14 (11.0-15.0) % Plt Count 210 (150-400) K/uL MPV 9.40 (7.40-12.00) fL Neut % (Auto) 79.3 (48.0-80.0) % Lymph % (Auto) 11.9 L (16.0-40.0) % [place] % (Auto) 8.4 (0.0-15.0) % Eos % (Auto) 0.1 (0.0-7.0) % Baso % (Auto) 0.3 (0.0-1.5) % Neut # (Auto) 10.8 H (1.4-5.7) K/uL Lymph # (Auto) 1.6 (0.6-2.4) K/uL [place] # (Auto) 1.1 H (0.0-0.8) K/uL Eos # (Auto) 0.0 (0.0-0.7) K/uL Baso # (Auto) 0.0 (0.0-0.1) K/uL Nucleated RBC % 0.0 /100WBC Nucleated RBCs # 0 K/uL Sodium 137 (136-145) mmol/L Potassium 4.2 (3.5-5.1) mmol/L Chloride 100 (98-107) mmol/L Carbon Dioxide 27.2 (21.0-32.0) mmol/L BUN 28 H (7.0-18.0) mg/dL Creatinine 1.7 H (0.6-1.0) mg/dL Est Cr Clr Drug Dosing 33.28 mL/min Estimated GFR (MDRD) 30.2 ml/min Glucose 153 H (74-106) mg/dL POC Glucose (60-110) mg/dL Calcium 10.9 H (8.5-10.1) mg/dL Total Bilirubin 0.8 (0.2-1.0) mg/dL AST 8 L (15-37) IU/L ALT 16 (14-63) IU/L Alkaline Phosphatase 61 (46-116) U/L Troponin I < 0.050 (0.000-0.056) ng/mL B-Natriuretic Peptide 36 (<100) PG/ML Total Protein 8.1 (6.4-8.2) g/dL Albumin 3.4 (3.4-5.0) g/dL Globulin 4.7 H (2.6-4.0) g/dL Albumin/Globulin Ratio 0.7 L (0.9-1.6) Lipase 171 (73-393) U/L Urine Color Urine Appearance Urine pH (5.0-8.0) Ur Specific [place] (1.001-1.035) Urine Protein (NEGATIVE) mg/dL Urine Glucose (UA) (NEGATIVE) mg/dL Urine Ketones (NEGATIVE) mg/dL Urine Occult Blood (NEGATIVE) Urine Nitrite (NEGATIVE) Urine Bilirubin (NEGATIVE) Urine Ictotest Urine Urobilinogen (<2.0) EU/dL Ur Leukocyte Esterase (NEGATIVE) Urine RBC (0-2/HPF) Urine WBC (0-5/HPF) Ur Epithelial Cells (NONE-FEW) Amorphous Sediment (NEGATIVE) Urine Bacteria (NEGATIVE) Urine Mucus (NONE-MOD) 06/04/18 06/04/18 06/04/18 Range/Units 15:34 17:25 19:30 WBC (4.0-11.0) K/uL RBC (4.30-5.90) M/uL Hgb (12.0-16.0) g/dL Hct (36.0-46.0) % MCV (80.0-98.0) fL MCH (27.0-32.0) pg MCHC (31.0-37.0) g/dL RDW Std Deviation (28.0-62.0) fl RDW Coeff of [place] (11.0-15.0) % Plt Count (150-400) K/uL MPV (7.40-12.00) fL Neut % (Auto) (48.0-80.0) % Lymph % (Auto) (16.0-40.0) % [place] % (Auto) (0.0-15.0) % Eos % (Auto) (0.0-7.0) % Baso % (Auto) (0.0-1.5) % Neut # (Auto) (1.4-5.7) K/uL Lymph # (Auto) (0.6-2.4) K/uL [place] # (Auto) (0.0-0.8) K/uL Eos # (Auto) (0.0-0.7) K/uL Baso # (Auto) (0.0-0.1) K/uL Nucleated RBC % /100WBC Nucleated RBCs # K/uL Sodium (136-145) mmol/L Potassium (3.5-5.1) mmol/L Chloride (98-107) mmol/L Carbon Dioxide (21.0-32.0) mmol/L BUN (7.0-18.0) mg/dL Creatinine (0.6-1.0) mg/dL Est Cr Clr Drug Dosing mL/min Estimated GFR (MDRD) ml/min Glucose (74-106) mg/dL POC Glucose 164 H 328 H 253 H (60-110) mg/dL Calcium (8.5-10.1) mg/dL Total Bilirubin (0.2-1.0) mg/dL AST (15-37) IU/L ALT (14-63) IU/L Alkaline Phosphatase (46-116) U/L Troponin I (0.000-0.056) ng/mL B-Natriuretic Peptide (<100) PG/ML Total Protein (6.4-8.2) g/dL Albumin (3.4-5.0) g/dL Globulin (2.6-4.0) g/dL Albumin/Globulin Ratio (0.9-1.6) Lipase (73-393) U/L Urine Color Urine Appearance Urine pH (5.0-8.0) Ur Specific [place] (1.001-1.035) Urine Protein (NEGATIVE) mg/dL Urine Glucose (UA) (NEGATIVE) mg/dL Urine Ketones (NEGATIVE) mg/dL Urine Occult Blood (NEGATIVE) Urine Nitrite (NEGATIVE) Urine Bilirubin (NEGATIVE) Urine Ictotest Urine Urobilinogen (<2.0) EU/dL Ur Leukocyte Esterase (NEGATIVE) Urine RBC (0-2/HPF) Urine WBC (0-5/HPF) Ur Epithelial Cells (NONE-FEW) Amorphous Sediment (NEGATIVE) Urine Bacteria (NEGATIVE) Urine Mucus (NONE-MOD) 06/04/18 06/05/18 06/05/18 Range/Units 21:18 05:30 06:01 WBC 11.35 H (4.0-11.0) K/uL RBC 4.46 (4.30-5.90) M/uL Hgb 13.2 (12.0-16.0) g/dL Hct 42.1 (36.0-46.0) % MCV 94.4 (80.0-98.0) fL MCH 29.6 (27.0-32.0) pg MCHC 31.4 (31.0-37.0) g/dL RDW Std Deviation 47.8 (28.0-62.0) fl RDW Coeff of Brianna 14 (11.0-15.0) % Plt Count 218 (150-400) K/uL MPV 10.00 (7.40-12.00) fL Neut % (Auto) 91.6 H (48.0-80.0) % Lymph % (Auto) 7.3 L (16.0-40.0) % [place] % (Auto) 1.1 (0.0-15.0) % Eos % (Auto) 0.0 (0.0-7.0) % Baso % (Auto) 0.0 (0.0-1.5) % Neut # (Auto) 10.4 H (1.4-5.7) K/uL Lymph # (Auto) 0.8 (0.6-2.4) K/uL [place] # (Auto) 0.1 (0.0-0.8) K/uL Eos # (Auto) 0.0 (0.0-0.7) K/uL Baso # (Auto) 0.0 (0.0-0.1) K/uL Nucleated RBC % 0.0 /100WBC Nucleated RBCs # 0 K/uL Sodium (136-145) mmol/L Potassium (3.5-5.1) mmol/L Chloride (98-107) mmol/L Carbon Dioxide (21.0-32.0) mmol/L BUN (7.0-18.0) mg/dL Creatinine (0.6-1.0) mg/dL Est Cr Clr Drug Dosing mL/min Estimated GFR (MDRD) ml/min Glucose (74-106) mg/dL POC Glucose 265 H (60-110) mg/dL Calcium (8.5-10.1) mg/dL Total Bilirubin (0.2-1.0) mg/dL AST (15-37) IU/L ALT (14-63) IU/L Alkaline Phosphatase (46-116) U/L Troponin I (0.000-0.056) ng/mL B-Natriuretic Peptide (<100) PG/ML Total Protein (6.4-8.2) g/dL Albumin (3.4-5.0) g/dL Globulin (2.6-4.0) g/dL Albumin/Globulin Ratio (0.9-1.6) Lipase (73-393) U/L Urine Color YELLOW Urine Appearance CLEAR Urine pH 5.0 (5.0-8.0) Ur Specific [place] >= 1.030 (1.001-1.035) Urine Protein NEGATIVE (NEGATIVE) mg/dL Urine Glucose (UA) NEGATIVE (NEGATIVE) mg/dL Urine Ketones TRACE H (NEGATIVE) mg/dL Urine Occult Blood NEGATIVE (NEGATIVE) Urine Nitrite NEGATIVE (NEGATIVE) Urine Bilirubin SMALL H (NEGATIVE) Urine Ictotest NEGATIVE Urine Urobilinogen 0.2 (<2.0) EU/dL Ur Leukocyte Esterase TRACE H (NEGATIVE) Urine RBC NONE SEEN (0-2/HPF) Urine WBC 0-2 (0-5/HPF) Ur Epithelial Cells MANY (NONE-FEW) Amorphous Sediment LIGHT (NEGATIVE) Urine Bacteria 2+ H (NEGATIVE) Urine Mucus MODERATE (NONE-MOD) 06/05/18 06/05/18 06/05/18 Range/Units 06:01 06:30 12:00 WBC (4.0-11.0) K/uL RBC (4.30-5.90) M/uL Hgb (12.0-16.0) g/dL Hct (36.0-46.0) % MCV (80.0-98.0) fL MCH (27.0-32.0) pg MCHC (31.0-37.0) g/dL RDW Std Deviation (28.0-62.0) fl RDW Coeff of Brianna (11.0-15.0) % Plt Count (150-400) K/uL MPV (7.40-12.00) fL Neut % (Auto) (48.0-80.0) % Lymph % (Auto) (16.0-40.0) % [place] % (Auto) (0.0-15.0) % Eos % (Auto) (0.0-7.0) % Baso % (Auto) (0.0-1.5) % Neut # (Auto) (1.4-5.7) K/uL Lymph # (Auto) (0.6-2.4) K/uL [place] # (Auto) (0.0-0.8) K/uL Eos # (Auto) (0.0-0.7) K/uL Baso # (Auto) (0.0-0.1) K/uL Nucleated RBC % /100WBC Nucleated RBCs # K/uL Sodium 138 (136-145) mmol/L Potassium 4.8 (3.5-5.1) mmol/L Chloride 103 (98-107) mmol/L Carbon Dioxide 26.4 (21.0-32.0) mmol/L BUN 51 H (7.0-18.0) mg/dL Creatinine 2.4 H (0.6-1.0) mg/dL Est Cr Clr Drug Dosing 23.57 mL/min Estimated GFR (MDRD) 20.3 ml/min Glucose 239 H (74-106) mg/dL POC Glucose 233 H 306 H (60-110) mg/dL Calcium 10.5 H (8.5-10.1) mg/dL Total Bilirubin 0.3 (0.2-1.0) mg/dL AST 10 L (15-37) IU/L ALT 16 (14-63) IU/L Alkaline Phosphatase 55 (46-116) U/L Troponin I (0.000-0.056) ng/mL B-Natriuretic Peptide (<100) PG/ML Total Protein 7.3 (6.4-8.2) g/dL Albumin 2.9 L (3.4-5.0) g/dL Globulin 4.4 H (2.6-4.0) g/dL Albumin/Globulin Ratio 0.7 L (0.9-1.6) Lipase (73-393) U/L Urine Color Urine Appearance Urine pH (5.0-8.0) Ur Specific [place] (1.001-1.035) Urine Protein (NEGATIVE) mg/dL Urine Glucose (UA) (NEGATIVE) mg/dL Urine Ketones (NEGATIVE) mg/dL Urine Occult Blood (NEGATIVE) Urine Nitrite (NEGATIVE) Urine Bilirubin (NEGATIVE) Urine Ictotest Urine Urobilinogen (<2.0) EU/dL Ur Leukocyte Esterase (NEGATIVE) Urine RBC (0-2/HPF) Urine WBC (0-5/HPF) Ur Epithelial Cells (NONE-FEW) Amorphous Sediment (NEGATIVE) Urine Bacteria (NEGATIVE) Urine Mucus (NONE-MOD) Med Orders - Current: Current Medications Acetaminophen (Tylenol) 650 mg PO Q4H PRN PRN Reason: Pain (Mild 1-3)/fever Albuterol/Ipratropium (Duoneb 3.0-0.5 Mg/3 Ml) 3 ml NEB Q6HRRT [facility] Last Admin: 06/05/18 11:22 Dose: 3 ml Azithromycin (Zithromax) 500 mg PO Q24H [facility] Heparin Sodium (Porcine) (Heparin Sodium) 5,000 units SUBCUT Q8H [facility] Last Admin: 06/05/18 08:20 Dose: 5,000 units Sodium Chloride (Normal Saline) 1,000 mls @ 125 mls/hr IV ASDIRECTED [facility] Ceftriaxone Sodium/Dextrose 1 (gm/ Premix) 50 mls @ 100 mls/hr IV Q24H [facility] Last Admin: 06/05/18 10:00 Dose: 100 mls/hr Insulin Aspart (Novolog) 0 unit SUBCUT QIDACANDBED [facility]; Protocol Last Admin: 06/05/18 08:15 Dose: 6 units Methylprednisolone Sodium Succinate (Solu-Medrol) 125 mg IV Q8H [facility] Ondansetron HCl (Zofran Odt) 4 mg PO Q6H PRN PRN Reason: nausea, able to take PO Oxycodone HCl (Oxycodone) 5 mg PO Q4H PRN PRN Reason: Pain (moderate 4-6) Brilinta (Ticagrelor () 90 Mg) 1 each PO BID [facility] Last Admin: 06/05/18 10:09 Dose: Not Given Rosuvastatin Calcium (Crestor) 40 mg PO DAILY [facility] Last Admin: 06/05/18 08:27 Dose: 40 mg Fluticasone/Salmeterol (Advair Diskus 250-50) 1 puff INH BID [facility] Last Admin: 06/05/18 09:32 Dose: 1 inhalation Temazepam (Restoril) 15 mg PO BEDTIME PRN PRN Reason: Sleep Discontinued Medications Albuterol/Ipratropium (Duoneb 3.0-0.5 Mg/3 Ml) 3 ml NEB ONETIME ONE Stop: 06/04/18 12:45 Last Admin: 06/04/18 13:06 Dose: 3 ml Albuterol/Ipratropium (Duoneb 3.0-0.5 Mg/3 Ml) 3 ml NEB Q4HRRT PRN PRN Reason: Shortness Of Breath/wheezing Enoxaparin Sodium (Lovenox) 30 mg SUBCUT Q24H [facility] Last Admin: 06/04/18 17:14 Dose: Not Given Lisinopril/HCTZ (Lisinopril-Hctz 10-12.5 Mg) 1 tab PO DAILY [facility] Sodium Chloride (Normal Saline) 1,000 mls @ 125 mls/hr IV STAT [facility] Last Admin: 06/04/18 12:55 Dose: 125 mls/hr Azithromycin 500 mg/ Sodium (Chloride) 250 mls @ 250 mls/hr IV Q24H [facility] Last Admin: 06/04/18 16:40 Dose: Not Given Sodium Chloride (Normal Saline) 1,000 mls @ 75 mls/hr IV ASDIRECTED [facility] Last Admin: 06/05/18 02:26 Dose: 75 mls/hr Azithromycin 500 mg/ Sodium (Chloride) 250 mls @ 250 mls/hr IV Q24H [facility] Last Admin: 06/04/18 16:40 Dose: 250 mls/hr Sodium Chloride (Normal Saline) 1,000 mls @ 500 mls/hr IV .Bolus ONE Stop: 06/05/18 10:29 Last Admin: 06/05/18 09:17 Dose: 500 mls/hr Insulin Aspart (Novolog) 0 unit SUBCUT ACBREAKFASTANDBED [facility]; Protocol Insulin Aspart (Novolog) 0 unit SUBCUT TIDAC [facility]; Protocol Last Admin: 06/04/18 16:22 Dose: 3 units Metformin HCl (Glucophage) 1,000 mg PO BIDMEALS [facility] Last Admin: 06/04/18 16:14 Dose: 1,000 mg Methylprednisolone Sodium Succinate (Solu-Medrol) 125 mg IVPUSH ONETIME ONE Stop: 06/04/18 12:45 Last Admin: 06/04/18 12:55 Dose: 125 mg Methylprednisolone Sodium Succinate (Solu-Medrol) 120 mg IV Q8H [facility] Last Admin: 06/05/18 06:31 Dose: 120 mg - Problem List & Annotations (1) Acute respiratory failure with hypoxia and hypercapnia SNOMED Code(s): 219237278 Code(s): J96.01 - ACUTE RESPIRATORY FAILURE WITH HYPOXIA; J96.02 - ACUTE RESPIRATORY FAILURE WITH HYPERCAPNIA Status: Acute Priority: High Current Visit: Yes (2) COPD exacerbation SNOMED Code(s): 996525451, 765143898 Code(s): J44.1 - CHRONIC OBSTRUCTIVE PULMONARY DISEASE W (ACUTE) EXACERBATION Status: Acute Priority: High Current Visit: Yes (3) Diabetes mellitus type II, non insulin dependent SNOMED Code(s): 29949126 Code(s): E11.9 - TYPE 2 DIABETES MELLITUS WITHOUT COMPLICATIONS Status: Chronic Priority: High Current Visit: Yes (4) CAD (coronary artery disease) SNOMED Code(s): 59803143 Code(s): I25.10 - ATHSCL HEART DISEASE OF [place] CORONARY ARTERY W/O ANG PCTRS Status: Chronic Priority: High Current Visit: Yes Qualifiers: Coronary Disease-Associated Artery/Lesion type: [place] artery [place] vs. transplanted heart: [place] heart Associated angina: without angina Qualified Code(s): I25.10 - Atherosclerotic heart disease of [place] coronary artery without angina pectoris (5) HTN (hypertension) SNOMED Code(s): 35038341 Code(s): I10 - ESSENTIAL (PRIMARY) HYPERTENSION Status: Chronic Priority : High Current Visit: Yes Qualifiers: Hypertension type: essential hypertension Qualified Code(s): I10 - Essential (primary) hypertension (6) Chronic kidney disease, stage 3 (moderate) SNOMED Code(s): 009986733 Code(s): N18.3 - CHRONIC KIDNEY DISEASE, STAGE 3 (MODERATE) Status: Chronic Priority: High Current Visit: Yes (7) Tobacco abuse SNOMED Code(s): 940702585 Code(s): Z72.0 - TOBACCO USE Status: Chronic Priority: High Current Visit: Yes - My Orders Last 24 Hours: My Active Orders 06/04/18 15:16 Blood Glucose Check, Bedside [RC] WITHMEALSANDBED Oxygen Therapy [RC] PRN Up With Assistance [RC] ASDIRECTED VTE/DVT Education [RC] DAILY Vital Signs [RC] Q4H Acetaminophen [Tylenol] 650 mg PO Q4H PRN Ondansetron [Zofran ODT] 4 mg PO Q6H PRN Temazepam [Restoril] 15 mg PO BEDTIME PRN oxyCODONE 5 mg PO Q4H PRN Glucose Management Sub Q Reflex [OM.PC] Click To Edit Resuscitation Status Routine 06/04/18 15:17 Cardiac Monitoring [RC] CONTINUOUS Diabetes Education [RC] Click to Edit 06/04/18 15:19 RT Aerosol Therapy [RC] ASDIRECTED 06/04/18 15:43 Telemetry Monitoring [Cardiac Monitoring] [RC] Q8H 06/04/18 16:15 Heparin Sodium 5,000 units SUBCUT Q8H 06/04/18 21:00 Insulin Aspart [NovoLOG] See Protocol SUBCUT QIDACANDBED 06/04/18 Dinner Consistent Carbohydrate Diet [DIET] 06/05/18 09:00 Rosuvastatin [Crestor] 40 mg PO DAILY
[2018-06-05] MEDS ORDERED: Lisinopril/Hydrochlorothiazide 10-12.5 MG Tab PO SCH (09:00)
[2018-06-05] MEDS: Fluticasone/Salmeterol 250-50 MCG Inhalation Powder 14/Diskus INH SCH ×2 (09:32→21:44)
--- NOTE | 2018-06-05 09:49 | US ---
EXAMINATION: Renal ultrasound HISTORY: Elevated creatinine COMPARISON: 02/18/2016 TECHNIQUE: Grayscale, color Doppler, and spectral Doppler imaging obtained. FINDINGS: The right kidney measures 10.2 cm, left kidney measures 11.2 cm [id number] without evidence hydronephrosis. The renal cortical echotexture is mildly increased. Cortical thickness is normal. No renal masses or perinephric fluid collections. Normal color Doppler flow bilaterally. Urinary bladder appears normal with bilateral urine jets. IMPRESSION: 1. Mild increased renal cortical cortical echotexture, correlate for medical renal diseases. 2. No hydronephrosis.
[2018-06-05] MEDS: cefTRIAXone 1 GM in Premix Bag 1 BAG IV SCH (10:00)
[2018-06-05] MEDS: BRILINTA 90 MG PO SCH ×2 (10:09→21:24)
[2018-06-05] MEDS: Albuterol/Ipratropium 3.0-0.5 MG/3 ML Neb Soln NEB SCH ×3 (11:22→23:58)
[2018-06-05] MEDS: Azithromycin 250 MG Tab PO SCH (16:22)
[2018-06-06] MEDS: methylPREDNISolone Sodium Succinate 125 MG/2 ML SDV IV SCH ×2 (05:34→16:16)
[2018-06-06] MEDS: Albuterol/Ipratropium 3.0-0.5 MG/3 ML Neb Soln NEB SCH ×4 (05:57→23:55)
[2018-06-06] MEDS: Insulin Aspart 100 Units/ML 3 ML Pen SUBCUT SCH ×4 (07:51→20:21)
--- NOTE | 2018-06-06 07:55 | PCM.PN ---
- General Info Date of Service: 06/06/18 Admission Dx/Problem (Free Text): Acute on chronic hypoxic respiratory failure, ALIDA on CKD Subjective Update: Feeling better today, breathing continues to improve and weaning down oxygen. No flank pain. No dysuria. No chest pain. Functional Status: Reports: Pain Controlled, Tolerating Diet, Ambulating, Urinating - Review of Systems General: Reports: No Symptoms. Denies: Weakness, Fatigue HEENT: Reports: No Symptoms. Denies: Headaches, Sore Throat, Visual Changes Pulmonary: Reports: Wheezing (much improved, rarely). Denies: Shortness of Breath, Cough, Sputum Cardiovascular: Reports: No Symptoms. Denies: Chest Pain Gastrointestinal: Reports: No Symptoms. Denies: Abdominal Pain, Nausea, Vomiting Genitourinary: Reports: No Symptoms Musculoskeletal: Reports: No Symptoms Skin: Reports: No Symptoms Neurological: Reports: No Symptoms Psychiatric: Reports: No Symptoms - Patient Data Vitals - Most Recent: Last Vital Signs Temp 97.3 F 06/06/18 04:00 Pulse 74 06/06/18 04:00 Resp 18 06/06/18 04:00 BP 108/65 06/06/18 04:00 Pulse Ox 90 L 06/06/18 04:00 Weight - Most Recent: 99.79 kg I&O - Last 24 Hours: Intake & Output 06/05/18 06/06/18 06/06/18 22:59 06:59 14:59 Intake Total 1835 700 Output Total 400 1050 Balance 1435 -350 Lab Results Last 24 Hours: Laboratory Results - last 24 hr 06/05/18 06/05/18 06/05/18 Range/Units 12:00 16:50 21:26 WBC (4.0-11.0) K/uL RBC (4.30-5.90) M/uL Hgb (12.0-16.0) g/dL Hct (36.0-46.0) % MCV (80.0-98.0) fL MCH (27.0-32.0) pg MCHC (31.0-37.0) g/dL RDW Std Deviation (28.0-62.0) fl RDW Coeff of Brianna (11.0-15.0) % Plt Count (150-400) K/uL MPV (7.40-12.00) fL Add Manual Diff Neutrophils % (Manual) (48.0-80.0) % Band Neutrophils % % Lymphocytes % (Manual) (16.0-40.0) % Monocytes % (Manual) (0.0-15.0) % Nucleated RBC % /100WBC Absolute Seg Neuts (1.4-5.7) Band Neutrophils # Lymphocytes # (Manual) (0.6-2.4) Monocytes # (Manual) (0.0-0.8) Nucleated RBCs # K/uL Sodium (136-145) mmol/L Potassium (3.5-5.1) mmol/L Chloride (98-107) mmol/L Carbon Dioxide (21.0-32.0) mmol/L BUN (7.0-18.0) mg/dL Creatinine (0.6-1.0) mg/dL Est Cr Clr Drug Dosing mL/min Estimated GFR (MDRD) ml/min Glucose (74-106) mg/dL POC Glucose 306 H 248 H 308 H (60-110) mg/dL Calcium (8.5-10.1) mg/dL 06/06/18 06/06/18 06/06/18 Range/Units 05:07 05:07 06:09 WBC 16.30 H (4.0-11.0) K/uL RBC 4.00 L (4.30-5.90) M/uL Hgb 11.7 L (12.0-16.0) g/dL Hct 37.2 (36.0-46.0) % MCV 93.0 (80.0-98.0) fL MCH 29.3 (27.0-32.0) pg MCHC 31.5 (31.0-37.0) g/dL RDW Std Deviation 46.7 (28.0-62.0) fl RDW Coeff of Brianna 14 (11.0-15.0) % Plt Count 247 (150-400) K/uL MPV 9.80 (7.40-12.00) fL Add Manual Diff YES Neutrophils % (Manual) 86 H (48.0-80.0) % Band Neutrophils % 8 % Lymphocytes % (Manual) 3 L (16.0-40.0) % Monocytes % (Manual) 3 (0.0-15.0) % Nucleated RBC % 0.0 /100WBC Absolute Seg Neuts 14.0 H (1.4-5.7) Band Neutrophils # 1.3 Lymphocytes # (Manual) 0.5 L (0.6-2.4) Monocytes # (Manual) 0.5 (0.0-0.8) Nucleated RBCs # 0 K/uL Sodium 139 (136-145) mmol/L Potassium 4.2 (3.5-5.1) mmol/L Chloride 105 (98-107) mmol/L Carbon Dioxide 23.3 (21.0-32.0) mmol/L BUN 55 H (7.0-18.0) mg/dL Creatinine 2.3 H (0.6-1.0) mg/dL Est Cr Clr Drug Dosing 24.60 mL/min Estimated GFR (MDRD) 21.3 ml/min Glucose 259 H (74-106) mg/dL POC Glucose 263 H (60-110) mg/dL Calcium 9.7 (8.5-10.1) mg/dL Med Orders - Current: Current Medications Acetaminophen (Tylenol) 650 mg PO Q4H PRN PRN Reason: Pain (Mild 1-3)/fever Albuterol/Ipratropium (Duoneb 3.0-0.5 Mg/3 Ml) 3 ml NEB Q6HRRT [facility] Last Admin: 06/06/18 05:57 Dose: 3 ml Azithromycin (Zithromax) 500 mg PO Q24H [facility] Last Admin: 06/05/18 16:22 Dose: 500 mg Heparin Sodium (Porcine) (Heparin Sodium) 5,000 units SUBCUT Q8H [facility] Last Admin: 06/05/18 23:58 Dose: 5,000 units Sodium Chloride (Normal Saline) 1,000 mls @ 125 mls/hr IV ASDIRECTED [facility] Last Admin: 06/05/18 23:54 Dose: 125 mls/hr Ceftriaxone Sodium/Dextrose 1 (gm/ Premix) 50 mls @ 100 mls/hr IV Q24H [facility] Last Admin: 06/05/18 10:00 Dose: 100 mls/hr Insulin Aspart (Novolog) 0 unit SUBCUT QIDACANDBED [facility]; Protocol Last Admin: 06/06/18 07:51 Dose: 9 units Methylprednisolone Sodium Succinate (Solu-Medrol) 125 mg IV Q12H [facility] Ondansetron HCl (Zofran Odt) 4 mg PO Q6H PRN PRN Reason: nausea, able to take PO Oxycodone HCl (Oxycodone) 5 mg PO Q4H PRN PRN Reason: Pain (moderate 4-6) Brilinta (Ticagrelor () 90 Mg) 1 each PO BID [facility] Last Admin: 06/05/18 21:24 Dose: 1 each Rosuvastatin Calcium (Crestor) 40 mg PO DAILY [facility] Last Admin: 06/05/18 08:27 Dose: 40 mg Fluticasone/Salmeterol (Advair Diskus 250-50) 1 puff INH BID [facility] Last Admin: 06/05/18 21:44 Dose: 1 inhalation Temazepam (Restoril) 15 mg PO BEDTIME PRN PRN Reason: Sleep Discontinued Medications Albuterol/Ipratropium (Duoneb 3.0-0.5 Mg/3 Ml) 3 ml NEB ONETIME ONE Stop: 06/04/18 12:45 Last Admin: 06/04/18 13:06 Dose: 3 ml Albuterol/Ipratropium (Duoneb 3.0-0.5 Mg/3 Ml) 3 ml NEB Q4HRRT PRN PRN Reason: Shortness Of Breath/wheezing Enoxaparin Sodium (Lovenox) 30 mg SUBCUT Q24H [facility] Last Admin: 06/04/18 17:14 Dose: Not Given Lisinopril/HCTZ (Lisinopril-Hctz 10-12.5 Mg) 1 tab PO DAILY [facility] Sodium Chloride (Normal Saline) 1,000 mls @ 125 mls/hr IV STAT [facility] Last Admin: 06/04/18 12:55 Dose: 125 mls/hr Azithromycin 500 mg/ Sodium (Chloride) 250 mls @ 250 mls/hr IV Q24H [facility] Last Admin: 06/04/18 16:40 Dose: Not Given Sodium Chloride (Normal Saline) 1,000 mls @ 75 mls/hr IV ASDIRECTED [facility] Last Admin: 06/05/18 02:26 Dose: 75 mls/hr Azithromycin 500 mg/ Sodium (Chloride) 250 mls @ 250 mls/hr IV Q24H [facility] Last Admin: 06/04/18 16:40 Dose: 250 mls/hr Sodium Chloride (Normal Saline) 1,000 mls @ 500 mls/hr IV .Bolus ONE Stop: 06/05/18 10:29 Last Admin: 06/05/18 09:17 Dose: 500 mls/hr Insulin Aspart (Novolog) 0 unit SUBCUT ACBREAKFASTANDBED [facility]; Protocol Insulin Aspart (Novolog) 0 unit SUBCUT TIDAC [facility]; Protocol Last Admin: 06/04/18 16:22 Dose: 3 units Metformin HCl (Glucophage) 1,000 mg PO BIDMEALS [facility] Last Admin: 06/04/18 16:14 Dose: 1,000 mg Methylprednisolone Sodium Succinate (Solu-Medrol) 125 mg IVPUSH ONETIME ONE Stop: 06/04/18 12:45 Last Admin: 06/04/18 12:55 Dose: 125 mg Methylprednisolone Sodium Succinate (Solu-Medrol) 120 mg IV Q8H [facility] Last Admin: 06/05/18 06:31 Dose: 120 mg Methylprednisolone Sodium Succinate (Solu-Medrol) 125 mg IV Q8H [facility] Last Admin: 06/06/18 05:34 Dose: 125 mg - Exam General: Alert, Oriented, Cooperative Lungs: Normal Respiratory Effort, Rhonchi (upper lobes), Wheezing (scant, upper lobes) Cardiovascular: Regular Rate, Regular Rhythm GI/Abdominal Exam: Normal Bowel Sounds, Soft, Non-Tender Back Exam: Normal Inspection, Full Range of Motion Extremities: Normal Inspection, Non-Tender, No Pedal Edema Neurological: No New Focal Deficit Psy/Mental Status: Alert, Normal Affect, Normal Mood - Problem List & Annotations (1) Acute respiratory failure with hypoxia and hypercapnia SNOMED Code(s): 513565063 Code(s): J96.01 - ACUTE RESPIRATORY FAILURE WITH HYPOXIA; J96.02 - ACUTE RESPIRATORY FAILURE WITH HYPERCAPNIA Status: Acute Priority: High Current Visit: Yes (2) COPD exacerbation SNOMED Code(s): 093429330, 645440599 Code(s): J44.1 - CHRONIC OBSTRUCTIVE PULMONARY DISEASE W (ACUTE) EXACERBATION Status: Acute Priority: High Current Visit: Yes (3) UTI (urinary tract infection) SNOMED Code(s): 06174117 Code(s): N39.0 - URINARY TRACT INFECTION, SITE NOT SPECIFIED Status: Acute Current Visit: No Qualifiers: Urinary tract infection type: acute cystitis Hematuria presence: without hematuria Qualified Code(s): N30.00 - Acute cystitis without hematuria (4) ALIDA (acute kidney injury) SNOMED Code(s): 13172792 Code(s): N17.9 - ACUTE KIDNEY FAILURE, UNSPECIFIED Status: Acute Current Visit: Yes (5) CAD (coronary artery disease) SNOMED Code(s): 27876166 Code(s): I25.10 - ATHSCL HEART DISEASE OF [place] CORONARY ARTERY W/O ANG PCTRS Status: Chronic Priority: High Current Visit: Yes Qualifiers: Coronary Disease-Associated Artery/Lesion type: [place] artery [place] vs. transplanted heart: [place] heart Associated angina: without angina Qualified Code(s): I25.10 - Atherosclerotic heart disease of [place] coronary artery without angina pectoris (6) Chronic kidney disease, stage 3 (moderate) SNOMED Code(s): 658985901 Code(s): N18.3 - CHRONIC KIDNEY DISEASE, STAGE 3 (MODERATE) Status: Chronic Priority: High Current Visit: Yes (7) Diabetes mellitus type II, non insulin dependent SNOMED Code(s): 04408485 Code(s): E11.9 - TYPE 2 DIABETES MELLITUS WITHOUT COMPLICATIONS Status: Chronic Priority: High Current Visit: Yes (8) HTN (hypertension) SNOMED Code(s): 79722525 Code(s): I10 - ESSENTIAL (PRIMARY) HYPERTENSION Status: Chronic Priority : High Current Visit: Yes Qualifiers: Hypertension type: essential hypertension Qualified Code(s): I10 - Essential (primary) hypertension (9) Tobacco abuse SNOMED Code(s): 118554549 Code(s): Z72.0 - TOBACCO USE Status: Chronic Priority: High Current Visit: Yes (10) Hx of myocardial infarction SNOMED Code(s): 480891275 Code(s): I25.2 - OLD MYOCARDIAL INFARCTION Status: Chronic Current Visit : No (11) Hypercalcemia SNOMED Code(s): 67969994 Code(s): E83.52 - HYPERCALCEMIA Status: Chronic Current Visit: No - Problem List Review Problem List Initiated/Reviewed/Updated: Yes - My Orders Last 24 Hours: My Active Orders 06/05/18 08:31 Sodium Chloride 0.9% [Normal Saline] 1,000 ml IV ASDIRECTED 06/05/18 09:00 Fluticasone/Salmeterol [Advair Diskus 250-50] 1 puff INH BID Patient's Own Medication [Ptom] 1 each PO BID 06/05/18 09:15 cefTRIAXone [Rocephin in Dextrose,Iso-Osm 1 GM/50 ML] 1 gm Premix Bag 1 bag IV Q24H 06/05/18 12:00 Albuterol/Ipratropium [DuoNeb 3.0-0.5 MG/3 ML] 3 ml NEB Q6HRRT 06/05/18 16:00 Azithromycin [Zithromax] 500 mg PO Q24H 06/06/18 17:00 methylPREDNISolone Sod Succ [Solu-MEDROL] 125 mg IV Q12H 06/07/18 05:11 BMP [BASIC METABOLIC PANEL,BMP] [CHEM] AM CBC WITH AUTO DIFF [HEME] AM 06/08/18 05:11 BMP [BASIC METABOLIC PANEL,BMP] [CHEM] AM CBC WITH AUTO DIFF [HEME] AM - Plan Plan:: This 67 year old female admitted with acute on chronic hypoxic respiratory failure and COPD exacerbation. 1. Acute on chronic hypoxic respiratory failure: Improved, on 0.5 L NC, continue to wean. Continue Duonebs. 2. COPD exacerbation: Improved, wheezing nearly gone. Continue Solu-mderol 125 mg, but decrease to Q12hr IV. Encourage ambulation and IS use. Declines help with smoke cessation. Continue Azithromycin. 3. ALIDA on CKD: No change. Continue IVF, may be related to dehydration and hypotensive episodes yesterday morning. BP improved today.Has stage III renal disease. Hold nephrotoxic medications, including Metformin and Lisinopril/HCTZ. Renal US ordered, medical renal disease noted, no acute findings. U 4. UTI: UC pending. Continue Rocephin 5. DM Type 2: Elevated BS, likely secondary to steroid administration. Continue SSI with Novolog. Last A1c 7.0. Hold Metformin due to ALIDA. DM educator consulted. 6. Hypercalcemia: Persistent. Again, upon review of PCP notes, she had NM study and noted to have parathyroid adenoma and hyperparathyroidism. Notes reports she has not seen specialist yet. Will monitor, but Ca is stable. 7. CAD: Hx PA with PCI to LAD. Continue statin and Brillinta 90 mg BID. VTE prophylaxis: Heparin Dispo: 1-2 days pending improvement. PCP, Lashanda Valdez NP and Dr Jacobs.
[2018-06-06] MEDS: Sodium Chloride 0.9% 1,000 ML IV SCH ×2 (08:12→16:47)
[2018-06-06] MEDS: cefTRIAXone 1 GM in Premix Bag 1 BAG IV SCH (09:52)
[2018-06-06] MEDS: Rosuvastatin 10 MG Tab PO SCH (09:55)
[2018-06-06] MEDS: BRILINTA 90 MG PO SCH ×2 (09:57→20:16)
[2018-06-06] MEDS: Fluticasone/Salmeterol 250-50 MCG Inhalation Powder 14/Diskus INH SCH ×2 (09:59→20:16)
[2018-06-06] MEDS: Heparin Sodium 5,000 Units/ML Vial SUBCUT SCH ×3 (10:00→23:54)
[2018-06-06] MEDS: Azithromycin 250 MG Tab PO SCH (16:15)
[2018-06-07] MEDS: Sodium Chloride 0.9% 1,000 ML IV SCH (00:15)
[2018-06-07] MEDS: methylPREDNISolone Sodium Succinate 125 MG/2 ML SDV IV SCH (04:12)
[2018-06-07] MEDS: Albuterol/Ipratropium 3.0-0.5 MG/3 ML Neb Soln NEB SCH (05:52)
[2018-06-07 07:36] VITALS: BP 158/82
[2018-06-07] MEDS: Heparin Sodium 5,000 Units/ML Vial SUBCUT SCH (07:48)
[2018-06-07] MEDS: Insulin Aspart 100 Units/ML 3 ML Pen SUBCUT SCH (07:55)
[2018-06-07] MEDS: Rosuvastatin 10 MG Tab PO SCH (08:42)
[2018-06-07] MEDS: BRILINTA 90 MG PO SCH (08:44)
[2018-06-07] MEDS: cefTRIAXone 1 GM in Premix Bag 1 BAG IV SCH (08:47)
[2018-06-07] MEDS: Fluticasone/Salmeterol 250-50 MCG Inhalation Powder 14/Diskus INH SCH (09:41)
--- NOTE | 2018-06-07 10:04 | PCM.DCSUM1 ---
Discharge Summary - Hospital Course Brief History: The patient is a 67-year-old lady who had presented to the emergency department primarily with a complaint of shortness of breath. The patient says that she has been sick with upper respiratory type infection for the past 2 days. Finally, shortness of breath got so bad that she needed to seek emergency care. The patient says that she has a cough that has been productive of sputum. She has denied any fever or chills but has felt cold. The patient still continues to smoke. In the emergency department the patient had a pulse oximetry reading of 85% on room air. She is on oxygen currently and does not use oxygen at home. She has had no specific aggravating or relieving factors although she gets more short of breath when ambulating Diagnosis: Stroke: No - Discharge Data Discharge Date: 06/07/18 Discharge Disposition: Home, Self-Care 01 Condition: Good - Discharge Diagnosis/Problem(s) (1) Acute respiratory failure with hypoxia and hypercapnia SNOMED Code(s): 459175296 ICD Code: J96.01 - ACUTE RESPIRATORY FAILURE WITH HYPOXIA; J96.02 - ACUTE RESPIRATORY FAILURE WITH HYPERCAPNIA Status: Acute Priority: High (2) COPD exacerbation SNOMED Code(s): 911455622, 071504131 ICD Code: J44.1 - CHRONIC OBSTRUCTIVE PULMONARY DISEASE W (ACUTE) EXACERBATION Status: Acute Priority: High (3) UTI (urinary tract infection) SNOMED Code(s): 77837975 ICD Code: N39.0 - URINARY TRACT INFECTION, SITE NOT SPECIFIED Status: Acute Qualifiers: Urinary tract infection type: acute cystitis Hematuria presence: without hematuria Qualified Code(s): N30.00 - Acute cystitis without hematuria (4) ALIDA (acute kidney injury) SNOMED Code(s): 41922120 ICD Code: N17.9 - ACUTE KIDNEY FAILURE, UNSPECIFIED Status: Acute (5) CAD (coronary artery disease) SNOMED Code(s): 74882870 ICD Code: I25.10 - ATHSCL HEART DISEASE OF [place] CORONARY ARTERY W/O ANG PCTRS Status: Chronic Priority: High Qualifiers: Coronary Disease-Associated Artery/Lesion type: [place] artery [place] vs. transplanted heart: [place] heart Associated angina: without angina Qualified Code(s): I25.10 - Atherosclerotic heart disease of [place] coronary artery without angina pectoris (6) Chronic kidney disease, stage 3 (moderate) SNOMED Code(s): 020281204 ICD Code: N18.3 - CHRONIC KIDNEY DISEASE, STAGE 3 (MODERATE) Status: Chronic Priority: High (7) Diabetes mellitus type II, non insulin dependent SNOMED Code(s): 41155722 ICD Code: E11.9 - TYPE 2 DIABETES MELLITUS WITHOUT COMPLICATIONS Status: Chronic Priority: High (8) HTN (hypertension) SNOMED Code(s): 48635055 ICD Code: I10 - ESSENTIAL (PRIMARY) HYPERTENSION Status: Chronic Priority : High Qualifiers: Hypertension type: essential hypertension Qualified Code(s): I10 - Essential (primary) hypertension (9) Tobacco abuse SNOMED Code(s): 729400214 ICD Code: Z72.0 - TOBACCO USE Status: Chronic Priority: High (10) Hx of myocardial infarction SNOMED Code(s): 815660801 ICD Code: I25.2 - OLD MYOCARDIAL INFARCTION Status: Chronic (11) Hypercalcemia SNOMED Code(s): 14706634 ICD Code: E83.52 - HYPERCALCEMIA Status: Chronic - Patient Instructions Diet: Heart Healthy Diet, Diabetic Diet Activity: As Tolerated Showering/Bathing: May Shower Notify Provider of: Fever, Increased Pain, Swelling and Redness, Drainage, Nausea and/or Vomiting - Discharge Plan *PRESCRIPTION DRUG MONITORING PROGRAM REVIEWED*: Not Applicable *COPY OF PRESCRIPTION DRUG MONITORING REPORT IN PATIENT ROSA: Not Applicable Prescriptions/Med Rec: predniSONE [Prednisone] 10 - 40 mg PO DAILY #30 tab.ds.pk Home Medications: Home Meds Lisinopril/Hydrochlorothiazide [Lisinopril-Hctz 10-12.5 mg Tab] 1 tab PO DAILY 10/03/14 [History] Nitroglycerin [Nitrostat] 0.4 mg SL Q5M PRN 10/03/14 [History] metFORMIN HCl [Glucophage] 1,000 mg PO BIDMEALS 11/12/15 [History] Aspirin 81 mg PO DAILY 02/16/16 [History] Fluticasone/Salmeterol [Advair Diskus 250-50] 1 puff INH BID #1 inhaler [Rx] Albuterol/Ipratropium [Combivent Respimat] 1 puff IH QID 07/02/17 [History] Rosuvastatin Calcium [Crestor] 40 mg PO DAILY 06/04/18 [History] Ticagrelor [Brilinta] 90 mg PO BID 06/05/18 [History] predniSONE [Prednisone] 10 - 40 mg PO DAILY #30 tab.ds.pk 06/07/18 [Rx] Patient Handouts: Prednisone tablets, Hypertension Referrals: [facility] [Outside] Kamari Jacobs MD [Ordering Only Provider] - 06/19/18 12:30 pm - Discharge Summary/Plan Comment DC Time >30 min.: No Discharge Summary/Plan Comment: Discharge Diagnoses: Acute on chronic hypoxic respiratory failure- resolved COPD exacerbation ALIDA on CKD UTI- treated, mixed cait. DM Type 2 Parul was admitted and treated for acute on chronic respiratory failure. She initially was hypoxic and placed on oxygen. She was treated with Solumedrol, oxygen Duonebs and Azithromycin. CXR negative for infiltrate. She steadily improved. During her stay mild hypotension noted which then ALIDA was noted the follow day she was given IV fluids, ARB held. Renal US revealed medical renal disease. She improved. Cr today 2.1 and trending down from highest of 2.4. She is no longer requiring oxygen and is eager to go home. She was also treated for mild UTI with rocephine x 3 days. She will be discharged home today with Prednisone taper. She will follow up with PCP with labwork to monitor renal function. She is to return to the ED or clinic. She declines smoking cessation. - General Info Date of Service: 06/07/18 Admission Dx/Problem (Free Text: Acute on chronic hypoxic respiratory failure, ALIDA on CKD Subjective Update: No longer requiring oxygen. Feels very ready to go home today. No chest pain or SOB. Wheezing is nearly gone. NO fevers. Functional Status: Reports: Tolerating Diet, Ambulating, Urinating - Review of Systems General: Reports: No Symptoms. Denies: Fever, Weakness, Fatigue HEENT: Reports: No Symptoms. Denies: Headaches, Sore Throat, Visual Changes Pulmonary: Reports: No Symptoms. Denies: Shortness of Breath, Cough Cardiovascular: Reports: No Symptoms. Denies: Chest Pain, Palpitations, Edema Gastrointestinal: Reports: No Symptoms. Denies: Abdominal Pain, Nausea, Vomiting Genitourinary: Reports: No Symptoms. Denies: Dysuria, Frequency, Burning Musculoskeletal: Reports: No Symptoms Skin: Reports: No Symptoms Neurological: Reports: No Symptoms Psychiatric: Reports: No Symptoms - Patient Data Vitals - Most Recent: Last Vital Signs Temp 98.4 F 06/07/18 07:30 Pulse 56 L 06/07/18 07:30 Resp 16 06/07/18 07:30 BP 158/82 H 06/07/18 07:30 Pulse Ox 89 L 06/07/18 07:30 Weight - Most Recent: 99.79 kg I&O - Last 24 hours: Intake & Output 06/06/18 06/07/18 06/07/18 22:59 06:59 14:59 Intake Total 1433 1939 240 Output Total 1700 Balance 1433 239 240 Lab Results - Last 24 hrs: Laboratory Results - last 24 hr 06/06/18 06/06/18 06/06/18 Range/Units 11:53 17:55 20:19 WBC (4.0-11.0) K/uL RBC (4.30-5.90) M/uL Hgb (12.0-16.0) g/dL Hct (36.0-46.0) % MCV (80.0-98.0) fL MCH (27.0-32.0) pg MCHC (31.0-37.0) g/dL RDW Std Deviation (28.0-62.0) fl RDW Coeff of Brianna (11.0-15.0) % Plt Count (150-400) K/uL MPV (7.40-12.00) fL Add Manual Diff Neutrophils % (Manual) (48.0-80.0) % Band Neutrophils % % Lymphocytes % (Manual) (16.0-40.0) % Monocytes % (Manual) (0.0-15.0) % Nucleated RBC % /100WBC Absolute Seg Neuts (1.4-5.7) Band Neutrophils # Lymphocytes # (Manual) (0.6-2.4) Monocytes # (Manual) (0.0-0.8) Nucleated RBCs # K/uL Sodium (136-145) mmol/L Potassium (3.5-5.1) mmol/L Chloride (98-107) mmol/L Carbon Dioxide (21.0-32.0) mmol/L BUN (7.0-18.0) mg/dL Creatinine (0.6-1.0) mg/dL Est Cr Clr Drug Dosing mL/min Estimated GFR (MDRD) ml/min Glucose (74-106) mg/dL POC Glucose 288 H 380 H 363 H (60-110) mg/dL Calcium (8.5-10.1) mg/dL 06/07/18 06/07/18 06/07/18 Range/Units 05:35 05:35 06:18 WBC 13.93 H (4.0-11.0) K/uL RBC 4.00 L (4.30-5.90) M/uL Hgb 11.8 L (12.0-16.0) g/dL Hct 36.7 (36.0-46.0) % MCV 91.8 (80.0-98.0) fL MCH 29.5 (27.0-32.0) pg MCHC 32.2 (31.0-37.0) g/dL RDW Std Deviation 46.3 (28.0-62.0) fl RDW Coeff of Brianna 14 (11.0-15.0) % Plt Count 255 (150-400) K/uL MPV 9.80 (7.40-12.00) fL Add Manual Diff YES Neutrophils % (Manual) 94 H (48.0-80.0) % Band Neutrophils % 1 % Lymphocytes % (Manual) 2 L (16.0-40.0) % Monocytes % (Manual) 3 (0.0-15.0) % Nucleated RBC % 0.2 /100WBC Absolute Seg Neuts 13.1 H (1.4-5.7) Band Neutrophils # 0.1 Lymphocytes # (Manual) 0.3 L (0.6-2.4) Monocytes # (Manual) 0.4 (0.0-0.8) Nucleated RBCs # 0 K/uL Sodium 141 (136-145) mmol/L Potassium 4.3 (3.5-5.1) mmol/L Chloride 107 (98-107) mmol/L Carbon Dioxide 23.8 (21.0-32.0) mmol/L BUN 49 H (7.0-18.0) mg/dL Creatinine 2.1 H (0.6-1.0) mg/dL Est Cr Clr Drug Dosing 26.94 mL/min Estimated GFR (MDRD) 23.6 ml/min Glucose 247 H (74-106) mg/dL POC Glucose 272 H (60-110) mg/dL Calcium 9.6 (8.5-10.1) mg/dL ANGELLA Results - Last 24 hrs: Microbiology 06/05/18 05:30 Urine Culture - Final Urine, Clean Catch MIXED CAIT 10,000-100,000 CFU/ML Med Orders - Current: Current Medications Acetaminophen (Tylenol) 650 mg PO Q4H PRN PRN Reason: Pain (Mild 1-3)/fever Albuterol/Ipratropium (Duoneb 3.0-0.5 Mg/3 Ml) 3 ml NEB Q6HRRT [facility] Last Admin: 06/07/18 05:52 Dose: 3 ml Azithromycin (Zithromax) 500 mg PO Q24H [facility] Last Admin: 06/06/18 16:15 Dose: 500 mg Heparin Sodium (Porcine) (Heparin Sodium) 5,000 units SUBCUT Q8H [facility] Last Admin: 06/07/18 07:48 Dose: 5,000 units Sodium Chloride (Normal Saline) 1,000 mls @ 125 mls/hr IV ASDIRECTED [facility] Last Admin: 06/07/18 00:15 Dose: 125 mls/hr Ceftriaxone Sodium/Dextrose 1 (gm/ Premix) 50 mls @ 100 mls/hr IV Q24H [facility] Last Admin: 06/07/18 08:47 Dose: 100 mls/hr Insulin Aspart (Novolog) 0 unit SUBCUT QIDACANDBED [facility]; Protocol Last Admin: 06/07/18 07:55 Dose: 9 units Methylprednisolone Sodium Succinate (Solu-Medrol) 125 mg IV Q12H [facility] Last Admin: 06/07/18 04:12 Dose: 125 mg Ondansetron HCl (Zofran Odt) 4 mg PO Q6H PRN PRN Reason: nausea, able to take PO Oxycodone HCl (Oxycodone) 5 mg PO Q4H PRN PRN Reason: Pain (moderate 4-6) Brilinta (Ticagrelor () 90 Mg) 1 each PO BID [facility] Last Admin: 06/07/18 08:44 Dose: 1 each Rosuvastatin Calcium (Crestor) 40 mg PO DAILY [facility] Last Admin: 06/07/18 08:42 Dose: 40 mg Fluticasone/Salmeterol (Advair Diskus 250-50) 1 puff INH BID [facility] Last Admin: 06/07/18 09:41 Dose: Not Given Temazepam (Restoril) 15 mg PO BEDTIME PRN PRN Reason: Sleep Discontinued Medications Albuterol/Ipratropium (Duoneb 3.0-0.5 Mg/3 Ml) 3 ml NEB ONETIME ONE Stop: 06/04/18 12:45 Last Admin: 06/04/18 13:06 Dose: 3 ml Albuterol/Ipratropium (Duoneb 3.0-0.5 Mg/3 Ml) 3 ml NEB Q4HRRT PRN PRN Reason: Shortness Of Breath/wheezing Enoxaparin Sodium (Lovenox) 30 mg SUBCUT Q24H [facility] Last Admin: 06/04/18 17:14 Dose: Not Given Lisinopril/HCTZ (Lisinopril-Hctz 10-12.5 Mg) 1 tab PO DAILY [facility] Sodium Chloride (Normal Saline) 1,000 mls @ 125 mls/hr IV STAT [facility] Last Admin: 06/04/18 12:55 Dose: 125 mls/hr Azithromycin 500 mg/ Sodium (Chloride) 250 mls @ 250 mls/hr IV Q24H [facility] Last Admin: 06/04/18 16:40 Dose: Not Given Sodium Chloride (Normal Saline) 1,000 mls @ 75 mls/hr IV ASDIRECTED [facility] Last Admin: 06/05/18 02:26 Dose: 75 mls/hr Azithromycin 500 mg/ Sodium (Chloride) 250 mls @ 250 mls/hr IV Q24H [facility] Last Admin: 06/04/18 16:40 Dose: 250 mls/hr Sodium Chloride (Normal Saline) 1,000 mls @ 500 mls/hr IV .Bolus ONE Stop: 06/05/18 10:29 Last Admin: 06/05/18 09:17 Dose: 500 mls/hr Insulin Aspart (Novolog) 0 unit SUBCUT ACBREAKFASTANDBED [facility]; Protocol Insulin Aspart (Novolog) 0 unit SUBCUT TIDAC [facility]; Protocol Last Admin: 06/04/18 16:22 Dose: 3 units Metformin HCl (Glucophage) 1,000 mg PO BIDMEALS [facility] Last Admin: 06/04/18 16:14 Dose: 1,000 mg Methylprednisolone Sodium Succinate (Solu-Medrol) 125 mg IVPUSH ONETIME ONE Stop: 06/04/18 12:45 Last Admin: 06/04/18 12:55 Dose: 125 mg Methylprednisolone Sodium Succinate (Solu-Medrol) 120 mg IV Q8H [facility] Last Admin: 06/05/18 06:31 Dose: 120 mg Methylprednisolone Sodium Succinate (Solu-Medrol) 125 mg IV Q8H [facility] Last Admin: 06/06/18 05:34 Dose: 125 mg - Exam General: Reports: Alert, Oriented, Cooperative Neck: Reports: Supple Lungs: Reports: Clear to Auscultation, Normal Respiratory Effort Cardiovascular: Reports: Regular Rate, Regular Rhythm GI/Abdominal Exam: Normal Bowel Sounds, Soft, Non-Tender Back Exam: Reports: Normal Inspection, Full Range of Motion Extremities: Normal Inspection, Normal Range of Motion Wound/Incisions: Reports: Healing Well Neurological: Reports: No New Focal Deficit Psy/Mental Status: Reports: Alert, Normal Affect, Normal Mood
== END 2018-06-07 11:25 | disposition home or self-care (01) | DRG 189 ==
LOC: MW.ED 12:37 → MW.MS 13:55
PROVIDERS: ADMIT Internal Medicine; ATTEND Internal Medicine
DX: J96.21 Acute and chronic respiratory failure with hypoxia (principal); J44.1 Chronic obstructive pulmonary disease with (acute) exacerbation; N30.00 Acute cystitis without hematuria; N17.9 Acute kidney failure, unspecified; I25.10 Atherosclerotic heart disease of native coronary artery without angina pectoris; E11.22 Type 2 diabetes mellitus with diabetic chronic kidney disease; I12.9 Hypertensive chronic kidney disease with stage 1 through stage 4 chronic kidney disease, or unspecified chronic kidney disease; N18.3 Chronic kidney disease, stage 3 (moderate); I25.2 Old myocardial infarction; E83.52 Hypercalcemia; I95.9 Hypotension, unspecified; E78.00 Pure hypercholesterolemia, unspecified; F17.210 Nicotine dependence, cigarettes, uncomplicated; E86.0 Dehydration; T38.0X5A Adverse effect of glucocorticoids and synthetic analogues, initial encounter; E11.65 Type 2 diabetes mellitus with hyperglycemia; Z95.828 Presence of other vascular implants and grafts; Z79.84 Long term (current) use of oral hypoglycemic drugs; Z79.82 Long term (current) use of aspirin; Z79.52 Long term (current) use of systemic steroids
CPT/HCPCS: 36415; 71045; 71045-26; 76770; 76770-26; 80048; 80053; 81001; 82962; 83690; 83880; 84484; 85025; 87086; 93005; 94640; 94664; 96361; 96374; 99283; 99285-25; A9270-GY; J0456; J0696; J1644; J1815-GY; J2930; J7040; J7050; J7620-GY